=== PATIENT | male | born 1950 | race Caucasian/White ===

== ENCOUNTER 2017-01-10 20:17 | Emergency (ER) | payer MEDICARE, OTHER ==
[2017-01-10 20:32] VITALS: RESP 18
[2017-01-10] MEDS ORDERED: LIDOCAINE/EPINEPHR/TETRACAINE 5 ML BOTTLE TOPICAL ONE (20:50)
--- NOTE | 2017-01-10 20:55 | ED ---
Head Injury HPI - General Chief complaint: Head Injury Stated complaint: Laceration Time Seen by Provider: 01/10/17 20:39 Source: patient, RN notes reviewed Mode of arrival: EMS - History of Present Illness Initial comments: Patient is 66-year-old male presents to the emergency room for evaluation of fall injury. Patient states she was walking and tripped over the curb hit the front of his head. Patient denies loss of consciousness. Patient denies headache. Patient denies neck pain. Patient denies changes in vision. Patient denies any paresthesias. Patient denies nausea or vomiting. Patient denies dizziness. Patient denies any other injuries during incident. Patient denies taking blood thinners. Patient states he is up-to-date on on tetanus. - Related Data Home Medications Medication Instructions Recorded Confirmed Aspirin 81 mg PO DAILY 12/29/13 12/29/13 Insulin Glargine [Lantus] 20 unit SQ HS 12/29/13 12/29/13 Lisinopril [Zestril] 10 mg PO DAILY 12/29/13 12/29/13 Multivitamin [Men's Multi-Vitamin] 1 each PO DAILY 12/29/13 12/29/13 Simvastatin [Zocor] 5 mg PO HS 12/29/13 12/29/13 glipiZIDE [Glucotrol] 2.5 mg PO AC-BID 12/29/13 12/29/13 metFORMIN HCL [Glucophage] 1,000 mg PO BID 12/29/13 12/29/13 Previous Rx's Medication Instructions Recorded Hydrocodone/Acetaminophen [[place] 1 each PO Q6HR PRN #20 tab 12/29/13 5-325] Ibuprofen [Motrin] 600 mg PO Q8HR PRN #30 tab 12/29/13 Ondansetron Odt [Zofran Odt] 4 mg PO Q8HR PRN #10 tab 12/29/13 Allergies/Adverse reactions: Allergies Allergy/AdvReac Type Severity Reaction Status Date / Time Penicillins Allergy Rash/Hives Verified 12/29/13 10:05 Review of Systems ROS Statement: Those systems with pertinent positive or pertinent negative responses have been documented in the HPI. ROS Other: All systems not noted in ROS Statement are negative. Past Medical History Past Medical History: Diabetes Mellitus, Hypertension Additional Past Medical History / Comment(s): kidney stones History of Any Multi-Drug Resistant Organisms: None Reported Past Surgical History: No Surgical Hx Reported Additional Past Surgical History / Comment(s): Lasix sx in left eye Past Psychological History: No Psychological Hx Reported Smoking Status: Never smoker Past Alcohol Use History: None Reported Past Drug Use History: None Reported General Exam - General Exam Comments Initial Comments: sitting in exam room, no acute distress. General appearance: alert, in no apparent distress Expanded Head exam: Present: laceration (2 small lacerations over the left forehead with underlying hematoma, first laceration stellate 1cm, second is linear 2cm) Eye exam: Present: normal appearance, PERRL, EOMI Pupils: Present: normal accommodation ENT exam: Present: normal exam, mucous membranes moist, TM's normal bilaterally , normal external ear exam Neck exam: Absent: normal inspection (c-collar on) Respiratory exam: Present: normal lung sounds bilaterally. Absent: respiratory distress Cardiovascular Exam: Present: regular rate, normal rhythm, normal heart sounds Extremities exam: Present: normal inspection, full ROM, normal capillary refill. Absent: tenderness Back exam: Present: normal inspection Neurological exam: Present: alert, oriented X3, CN II-XII intact, normal gait Psychiatric exam: Present: normal affect, normal mood Skin exam: Present: warm, dry, normal color. Absent: rash Course Vital Signs 01/10/17 01/10/17 20:26 22:52 Temperature 98.2 F 98.7 F Pulse Rate 82 74 Respiratory 18 18 Rate Blood Pressure 123/58 100/60 O2 Sat by Pulse 96 95 Oximetry Procedures - Laceration Laceration #1 Consent Obtained: verbal consent Indication: laceration Site: other (left forehead) Size (cm): 1 Description: stellate Depth: simple, single layer Anesthetic Used: lidocaine 1% Anesthesia Technique: local infiltration Amount (mls): 1 Pre-repair: wound explored Type of Sutures: nylon Size of Sutures: 6-0 Number of Sutures: 3 Technique: simple, interrupted Patient Tolerated Procedure: well, no complications Laceration #2 Consent Obtained: verbal consent Indication: laceration Site: other (left forehead) Size (cm): 2 Description: linear Depth: simple, single layer Anesthetic Used: lidocaine 1% Anesthesia Technique: local infiltration Amount (mls): 2 Pre-repair: wound explored Type of Sutures: nylon Size of Sutures: 6-0 Number of Sutures: 5 Technique: simple, interrupted Patient Tolerated Procedure: well, no complications Medical Decision Making - Medical Decision Making Patient is a 66-year-old male presents to the emergency room for evaluation of fall injury. Patient fell forward hitting his head after tripping on a curb. Lacerations repaired with sutures. Patient does have a hematoma over her left forehead. Brain/C-spine CT negative for any acute findings. Advised patient to follow-up with primary care provider for reevaluation in 24-48 hours. Patient states he understands everything that was discussed with him. Return parameters discussed. Case discussed with Dr. Sutton. Disposition Clinical Impression: Fall, Head injury, Facial hematoma, Facial laceration Disposition: HOME SELF-CARE Condition: Good Instructions: Care For Your Stitches (ED), Head Injury (ED), Facial Laceration (ED) Additional Instructions: Please follow up with primary care provider in 24-48 hours for reevaluation. Clean suture area with a damp cloth. Please return in 3-5 days for suture removal. Take Tylenol or Motrin as needed for pain. If any new symptom arises or symptoms worsen, return to ER as soon as possible. Referrals: Nonstaff,Physician [Primary Care Provider] - 1-2 days Time of Disposition: 22:46
--- NOTE | 2017-01-10 21:37 | CT ---
EXAMINATION TYPE: CT brain avtar calderon DATE OF EXAM: 01/10/2017 COMPARISON: NONE HISTORY: Fall today with frontal injury CT DLP: 1395.7 mGycm Automated exposure control for dose reduction was used. TECHNIQUE: CT scan of the head and cervical spine are performed without contrast. FINDINGS: There is no acute intracranial hemorrhage, mass effect, or midline shift identified. The ventricles and sulci are within normal limits in size. 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 The globes are intact and the visualized sinuses are clear. There is a small superficial extr acalvarial hematoma overlying the left frontal bone. This measures a maximum width of 3 cm. Cervical spine is visualized in its entirety from C1 through upper thoracic levels and demonstrates s atisfactory alignment without evidence of acute fracture or dislocation. Prevertebral soft tissue ap pears within normal limits. The C1-C2 articulation is unremarkable. IMPRESSION: 1. There is no acute fracture or dislocation evident in the cervical spine. 2. No acute intracranial hemorrhage, mass effect, or midline shift is seen. A superficial extracalvar ial hematoma overlying the left frontal bone is noted.
[2017-01-10 23:34] VITALS: BP 100/60; PULSE 74; TEMP 98.7
== END 2017-01-10 22:52 | disposition home or self-care (01) ==
LOC: EC 20:17
DX: S01.81XA Laceration without foreign body of other part of head, initial encounter (principal); E11.9 Type 2 diabetes mellitus without complications; I10 Essential (primary) hypertension; Z88.0 Allergy status to penicillin; Z79.82 Long term (current) use of aspirin; Z79.4 Long term (current) use of insulin; Z79.84 Long term (current) use of oral hypoglycemic drugs; Z79.899 Other long term (current) drug therapy; W01.198A Fall on same level from slipping, tripping and stumbling with subsequent striking against other object, initial encounter; Y93.01 Activity, walking, marching and hiking
CPT/HCPCS: 12013; 70450; 72125; 99284

== ENCOUNTER 2020-06-28 21:41 | Observation (INO) | payer OTHER ==
[2020-06-28] MEDS ORDERED: LIDOCAINE 1% INJ 10MG/ML (20 ML MDV) SQ ONE (22:03)
--- NOTE | 2020-06-28 22:05 | ED ---
General Adult HPI - General Chief complaint: Fall Stated complaint: Fall Time Seen by Provider: 06/28/20 21:50 Source: patient Mode of arrival: EMS Limitations: no limitations - History of Present Illness Initial comments: Dictation was produced using [employer] dictation software. please excuse any grammatical, word or spelling errors. This patient was cared for during a federal and state declared state of emergency secondary to Covid 19 Chief Complaint: 70-year-old male who tripped and fell at home at 5:30 PM presents with facial pain History of Present Illness: Patient 70-year-old male has past medical history diabetes and hypertension. He is ambulating around his household when he tripped and fell over a threshold between rooms. Patient states he fell forward and struck his face on the ground. Denies any loss of consciousness. EMS was called. They noted that there was a foreign body lodged into his upper lip. The ROS documented in this emergency department record has been reviewed and confirmed by me. Those systems with pertinent positive or negative responses have been documented in the HPI. All other systems are other negative and/or noncontributory. PHYSICAL EXAM: General Impression: Alert and oriented x3, not in acute distress HEENT: Bruising of the face, periorbital ecchymoses, there is a avulsion l aceration over the upper lip with foreign body, extra-ocular movements intact, pupils equal and reactive to light bilaterally, mucous membranes moist. Cardiovascular: Heart regular rate and rhythm Chest: Able to complete full sentences, no retractions, no tachypnea Abdomen: abdomen soft, non-tender, non-distended, no organomegaly Musculoskeletal: Pulses present and equal in all extremities, no peripheral edema Motor: no focal deficits noted Neurological: CN II-XII grossly intact, no focal motor or sensory deficits noted Skin: Intact with no visualized rashes Psych: Normal affect and mood ED course: 70-year-old male presents after fall and facial trauma. Vital signs upon arrival are within acceptable limits. EKG interpretation: Ventricular rate 73, normal sinus rhythm,. Interval 180, r ight bundle branch block, QRS 142, QTc 460. No WA prolongation, no QTC prolongation, no ST or T-wave changes noted. No old EKG for comparison. Computed tomography scan of the head and C-spine shows no acute processes. Facial CT shows comminuted nasal bone fracture that appears to be acute. Is mild frontal scalp soft tissue swelling. Patient's tetanus was updated. Patient was given lidocaine lacerations were cleaned and repaired. Patient told to have his sutures removed in 5 days. - Related Data Home Medications Medication Instructions Recorded Confirmed Aspirin 81 mg PO DAILY 12/29/13 12/29/13 Insulin Glargine [Lantus] 20 unit SQ HS 12/29/13 12/29/13 Multivitamin [Men's Multi-Vitamin] 1 each PO DAILY 12/29/13 12/29/13 Simvastatin [Zocor] 5 mg PO HS 12/29/13 12/29/13 glipiZIDE [Glucotrol] 2.5 mg PO AC-BID 12/29/13 12/29/13 lisinopriL [Zestril] 10 mg PO DAILY 12/29/13 12/29/13 metFORMIN HCL [Glucophage] 1,000 mg PO BID 12/29/13 12/29/13 Previous Rx's Medication Instructions Recorded Hydrocodone/Acetaminophen [[place] 1 each PO Q6HR PRN #20 tab 12/29/13 5-325] Ibuprofen [Motrin] 600 mg PO Q8HR PRN #30 tab 12/29/13 Ondansetron Odt [Zofran Odt] 4 mg PO Q8HR PRN #10 tab 12/29/13 Allergies Allergy/AdvReac Type Severity Reaction Status Date / Time Penicillins Allergy Rash/Hives Verified 06/28/20 23:45 Review of Systems ROS Statement: Those systems with pertinent positive or pertinent negative responses have been documented in the HPI. ROS Other: All systems not noted in ROS Statement are negative. Past Medical History Past Medical History: Diabetes Mellitus, Hypertension Additional Past Medical History / Comment(s): kidney stones History of Any Multi-Drug Resistant Organisms: None Reported Past Surgical History: No Surgical Hx Reported Additional Past Surgical History / Comment(s): Lasix sx in left eye Past Psychological History: No Psychological Hx Reported Past Alcohol Use History: None Reported Past Drug Use History: None Reported General Exam Limitations: no limitations Course Vital Signs 06/28/20 21:46 Temperature 98.0 F Pulse Rate 77 Respiratory 18 Rate Blood Pressure 103/68 O2 Sat by Pulse 97 Oximetry Procedures - Laceration Laceration #1 Consent Obtained: verbal consent Indication: laceration Site: face Size (cm): 5 Description: avulsion Depth: simple, single layer Anesthetic Used: lidocaine 1% Anesthesia Technique: local infiltration Type of Sutures: nylon Size of Sutures: 6-0 Technique: simple, interrupted Patient Tolerated Procedure: well Disposition Clinical Impression: Fall, Facial laceration Disposition: HOME SELF-CARE Condition: Good Instructions (If sedation given, give patient instructions): Fall Prevention for Older Adults (ED) Additional Instructions: Suture removal in 5 days. Is patient prescribed a controlled substance at d/c from ED?: No Referrals: Nonstaff,Physician [REFERRING] - 1-2 days Time of Disposition: 23:50
--- NOTE | 2020-06-28 23:13 | CT ---
EXAMINATION TYPE: CT brain avtar wo con DATE OF EXAM: 06/28/2020 COMPARISON: 01/10/2017 HISTORY: pt fall, facial injuries CT DLP: 1160.1 mGycm Automated exposure control for dose reduction was used. Images were obtained of the brain and cervical spine without contrast. There is cerebral cortical atrophy. There is no mass effect nor midline shift. There is no evidence o f intracranial hemorrhage. The calvarium is intact. Skull base is intact. There is normal aeration of the paranasal sinuses. There is incomplete pneumatization of the mastoid sinuses. Cervical vertebra have normal alignment. Posterior elements are intact. Disc spaces are fairly normal . Facet joints are intact. The skull base is intact. There is no evidence of compression fracture. IMPRESSION: Mild cerebral atrophy. No acute intracranial abnormality. No change. Negative CT scan of the cervical spine. No fracture. No change.
--- NOTE | 2020-06-28 23:29 | CT ---
EXAMINATION TYPE: CT facial bones wo con DATE OF EXAM: 06/28/2020 COMPARISON: None HISTORY: pt fall, facial injuries CT DLP: 1160.1 mGycm Automated exposure control for dose reduction was used. Images were obtained from the bottom of the mandible to the top of the frontal sinuses without contra st. The mandibular ring is intact. Temporomandibular joints appear normal. Zygomatic arches appear no rmal. There is deformity of the nasal bone with depression of the left lateral wall of the nasal bone and comminuted fracture. There is normal aeration of the maxillary sinuses. Orbital margins are inta ct. There is no evidence of a blowout fracture. The globes are symmetric. There is no evidence of ret ro-orbital mass. There is some mucosal thickening in the anterior nasopharynx and anterior ethmoid ai r cells. This could be partly blood clot. There is mild soft tissue swelling over the frontal bone. IMPRESSION: Comminuted nasal bone fracture appears acute and is a change compared to 01/10/2017 CT scan. Mild frontal scalp soft tissue swelling.
[2020-06-28] MEDS ORDERED: DIPH,PERTUS(ACELL)TETVAC-LF 0.5 ML VIAL IM ONE (23:31)
[2020-06-29 00:22] LABS: Glucose,Whole Blood 580 mg/dL (75-99)
[2020-06-29] MEDS ORDERED: SODIUM CHLORIDE 0.9% 1,000 ML IV STA ×2 (00:23→01:53)
[2020-06-29] MEDS ORDERED: INSULIN REGULAR 100 UNIT/ML VIAL IV ONE (00:23)
[2020-06-29 01:00] LABS: Basophils # (A) 0.1 k/uL (0-0.2); Basophils % (A) 1 %; Eosinophils # (A) 0.1 k/uL (0-0.7); Eosinophils % (A) 2 %; HCT 41.2 % (39.0-53.0); HGB 14.7 gm/dL (13.0-17.5); Lymphocytes # (A) 1.2 k/uL (1.0-4.8); Lymphocytes % (A) 17 %; MCH 31.2 pg (25.0-35.0); MCHC 35.7 g/dL (31.0-37.0); MCV 87.5 fL (80.0-100.0); Mean Platelet Volume 6.6; Monocytes # (A) 0.4 k/uL (0-1.0); Monocytes % (A) 6 %; Neutrophils # (A) 5.1 k/uL (1.3-7.7); Neutrophils % (A) 73 %; Platelet Count 190 k/uL (150-450); RBC 4.71 m/uL (4.30-5.90); RDW 13.1 % (11.5-15.5)
[2020-06-29 01:24] LABS: Glucose,Whole Blood 436 mg/dL (75-99)
[2020-06-29 02:20] LABS: African American GFR (CKD) 77 (>60 ml/min/1.73 sqM); Anion Gap 7 mmol/L; Blood Urea Nitrogen 23 mg/dL (9-20); Calcium 9.2 mg/dL (8.4-10.2); Carbon Dioxide 32 mmol/L (22-30); Chloride 91 mmol/L (98-107); Non-African American GFR(CKD) 66 (>60 ml/min/1.73 sqM); Sodium 130 mmol/L (137-145)
[2020-06-29 02:38] LABS: Glucose 549 mg/dL (74-99)
[2020-06-29] MEDS ORDERED: NALOXONE 0.4 MG/ML 1 ML VIAL IV PRN (03:09)
[2020-06-29 03:12] LABS: Glucose,Whole Blood 309 mg/dL (75-99)
[2020-06-29] MEDS ORDERED: ACETAMINOPHEN TAB 325 MG TAB PO PRN (03:21)
[2020-06-29] MEDS ORDERED: IBUPROFEN 400 MG TAB PO PRN (03:21)
[2020-06-29 08:38] VITALS: RESP 16
[2020-06-29 08:48] LABS: Glucose,Whole Blood 373 mg/dL (75-99)
[2020-06-29] MEDS ORDERED: INSULIN DETEMIR (LEVEMIR) 100 UNIT/ML SYR SQ SCH ×2 (09:00→21:00)
[2020-06-29] MEDS: SERTRALINE 100 MG TAB PO SCH (09:49)
[2020-06-29] MEDS: ASPIRIN 81 MG PO SCH (09:49)
[2020-06-29] MEDS: metFORMIN 500 MG TAB PO SCH ×2 (09:49→23:16)
[2020-06-29] MEDS: MULTIVITAMINS, THERA 1 EACH TAB PO SCH (09:49)
[2020-06-29] MEDS: INSULIN ASPART (NovoLOG) 100 UNIT/ML VIAL SQ SCH ×4 (09:50→23:16)
[2020-06-29 13:06] LABS: Glucose,Whole Blood 415 mg/dL (75-99)
[2020-06-29] MEDS: SODIUM CHLORIDE 0.9% 1,000 ML IV SCH ×3 (13:20→23:23)
--- NOTE | 2020-06-29 13:47 | P.HPIM ---
History of Present Illness Patient 70-year-old male has past medical history diabetes and hypertension. He is ambulating around his household when he tripped and fell over a threshold between rooms. Patient states he fell forward and struck his face on the ground. Denies any loss of consciousness. EMS was called. They noted that there was a foreign body lodged into his upper lip. She was about to discharge from ER but the found to have highly elevated blood sugars because of which patient was given the 30 units of Levemir. Patient usually takes long-acting insulin the 30 units at nighttime. 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 Review of Systems REVIEW OF SYSTEMS: CONSTITUTIONAL: No fever, no malaise, no fatigue. HEENT: No recent visual problems or hearing problems. Denied any sore throat. CARDIOVASCULAR: No chest pain, orthopnea, PND, no palpitations, no syncope. PULMONARY: No shortness of breath, no cough, no hemoptysis. GASTROINTESTINAL: No diarrhea, no nausea, no vomiting, no abdominal pain. NEUROLOGICAL: No headaches, no weakness, no numbness. HEMATOLOGICAL: Denies any bleeding or petechiae. GENITOURINARY: Denies any burning micturition, frequency, or urgency. MUSCULOSKELETAL/RHEUMATOLOGICAL: Denies any joint pain, swelling, or any muscle pain. ENDOCRINE: Denies any polyuria or polydipsia. The rest of the 14-point review of systems is negative. Past Medical History Past Medical History: Diabetes Mellitus, Hypertension Additional Past Medical History / Comment(s): kidney stones History of Any Multi-Drug Resistant Organisms: None Reported Past Surgical History: No Surgical Hx Reported Additional Past Surgical History / Comment(s): Lasix sx in left eye Past Psychological History: No Psychological Hx Reported Past Alcohol Use History: None Reported Past Drug Use History: None Reported Medications and Allergies Home Medications Medication Instructions Recorded Confirmed Type Aspirin 81 mg PO DAILY 12/29/13 06/28/20 History Insulin Glargine [Lantus] 30 unit SQ DAILY 12/29/13 06/28/20 History metFORMIN HCL [Glucophage] 1,000 mg PO BID 12/29/13 06/28/20 History Dextran/Hypromellose/Glycerin 1 drop BOTH EYES QID PRN 06/28/20 06/28/20 History [Genteal Tears 0.1%-0.2%-0.3%] Multivitamins W/Minerals 1 tab PO DAILY 06/28/20 06/28/20 History Sertraline [Zoloft] 100 mg PO DAILY 06/28/20 06/28/20 History Simvastatin [Zocor] 40 mg PO HS 06/28/20 06/28/20 History lisinopriL [Zestril] 2.5 mg PO DAILY 06/28/20 06/28/20 History Allergies Allergy/AdvReac Type Severity Reaction Status Date / Time Penicillins Allergy Rash/Hives Verified 06/28/20 23:45 Physical Exam Vitals: Vital Signs Temp Pulse Pulse Resp BP BP Pulse Ox 06/29/20 08:37 97.4 F L 89 16 98/60 94 L 06/29/20 06:50 98.4 F 69 20 98/61 94 L 06/29/20 01:51 98.3 F 73 18 107/61 97 06/28/20 21:46 98.0 F 77 18 103/68 97 Intake and Output 06/28/20 06/29/20 06/29/20 22:59 06:59 14:59 Intake Total 360 Balance 360 Intake: Oral 360 Other: Weight 60.781 kg PHYSICAL EXAMINATION: GENERAL: The patient is alert and oriented x3, not in any acute distress. Well developed, well nourished. HEENT: Pupils are round and equally reacting to light. EOMI. No scleral icterus. No conjunctival pallor. Normocephalic, patient has multiple bruises on the face. Orbital ecchymosis and laceration of the upper lip. No pharyngeal erythema. No thyromegaly. CARDIOVASCULAR: S1 and S2 present. No murmurs, rubs, or gallops. PULMONARY: Chest is clear to auscultation, no wheezing or crackles. ABDOMEN: Soft, nontender, nondistended, normoactive bowel sounds. No palpable organomegaly. MUSCULOSKELETAL: No joint swelling or deformity. EXTREMITIES: No cyanosis, clubbing, or pedal edema. NEUROLOGICAL: Gross neurological examination did not reveal any focal deficits. SKIN: No rashes. Results CBC & Chem 7: 06/29/20 00:45 06/29/20 02:09 Labs: Abnormal Lab Results - Last 24 Hours (Table) 06/29/20 06/29/20 06/29/20 Range/Units 00:20 01:23 02:09 Sodium 130 L (137-145) mmol/L Chloride 91 L (98-107) mmol/L Carbon Dioxide 32 H (22-30) mmol/L BUN 23 H (9-20) mg/dL Glucose 549 H* (74-99) mg/dL POC Glucose (mg/dL) 580 H 436 H (75-99) mg/dL 06/29/20 06/29/20 06/29/20 Range/Units 03:10 08:45 12:59 Sodium (137-145) mmol/L Chloride (98-107) mmol/L Carbon Dioxide (22-30) mmol/L BUN (9-20) mg/dL Glucose (74-99) mg/dL POC Glucose (mg/dL) 309 H 373 H 415 H (75-99) mg/dL Assessment and Plan Plan: -Hypoglycemia: Patient will be given 20 more units at nighttime of long-acting insulin along with sliding scale will monitor the blood sugars depending on the blood sugar response I'll be able to decide his home regimen by tomorrow morning. -Hyponatremia: Pseudohyponatremia from hyperglycemia there is probably mild dehydration as well patient will be started on IV fluids -Acute renal failure secondary to dehydration IV fluids as mentioned above -Mechanical fall: No fractures on CT of the cervical spine and head. The comminuted nasal bone fracture. -Hypertension
[2020-06-29 16:38] LABS: Glucose,Whole Blood 350 mg/dL (75-99)
[2020-06-29] MEDS ORDERED: ATORVASTATIN 20 MG TAB PO SCH (21:00)
[2020-06-29 22:26] LABS: Glucose,Whole Blood 300 mg/dL (75-99)
[2020-06-30] MEDS: SODIUM CHLORIDE 0.9% 1,000 ML IV SCH ×2 (03:59→08:13)
[2020-06-30 05:53] LABS: Glucose,Whole Blood 99 mg/dL (75-99)
[2020-06-30] MEDS: INSULIN ASPART (NovoLOG) 100 UNIT/ML VIAL SQ SCH ×2 (07:11→12:17)
[2020-06-30] MEDS: ASPIRIN 81 MG PO SCH (08:12)
[2020-06-30] MEDS: MULTIVITAMINS, THERA 1 EACH TAB PO SCH (08:13)
[2020-06-30] MEDS: SERTRALINE 100 MG TAB PO SCH (08:13)
[2020-06-30] MEDS: metFORMIN 500 MG TAB PO SCH (08:13)
[2020-06-30 08:30] LABS: African American GFR (CKD) >90 (>60 ml/min/1.73 sqM); Anion Gap 6 mmol/L; Blood Urea Nitrogen 20 mg/dL (9-20); Calcium 8.2 mg/dL (8.4-10.2); Carbon Dioxide 28 mmol/L (22-30); Chloride 101 mmol/L (98-107); Glucose 239 mg/dL (74-99); Non-African American GFR(CKD) 80 (>60 ml/min/1.73 sqM); Potassium 3.8 mmol/L (3.5-5.1); Sodium 135 mmol/L (137-145)
[2020-06-30 09:28] VITALS: BP 97/56; PULSE 76; TEMP 97.2
[2020-06-30 12:00] LABS: Glucose,Whole Blood 309 mg/dL (75-99)
--- NOTE | 2020-06-30 12:08 | P.DS ---
Providers Date of admission: 06/29/20 03:11 Attending physician: Marla Damon Primary care physician: Stated None Hospital Course: 70-year-old male has past medical history diabetes and hypertension. He is ambulating around his household when he tripped and fell over a threshold between rooms. Patient states he fell forward and struck his face on the ground. Denies any loss of consciousness. EMS was called. They noted that there was a foreign body lodged into his upper lip. She was about to discharge from ER but the found to have highly elevated blood sugars because of which patient was given the 30 units of Levemir. Patient usually takes long-acting insulin the 30 units at nighttime. 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 06/30/2020 Patient blood sugars have come down significantly patient probably related 40 units of Lantus patient was asked to check the blood sugars twice a day. Patient is probably on lisinopril low-dose as a nephro protective agent for diabetic nephropathy. His blood pressure is significantly low because of which I'll stop this medication can be restarted as an outpatient if needed again. And if he has proteinuria. Patient's hyponatremia improved patient was in sodium is 135. PHYSICAL EXAMINATION: GENERAL: The patient is alert and oriented x3, not in any acute distress. Well developed, well nourished. HEENT: Pupils are round and equally reacting to light. EOMI. No scleral icterus. No conjunctival pallor. Normocephalic, patient has multiple bruises on the face. Orbital ecchymosis and laceration of the upper lip. No pharyngeal erythema. No thyromegaly. CARDIOVASCULAR: S1 and S2 present. No murmurs, rubs, or gallops. PULMONARY: Chest is clear to auscultation, no wheezing or crackles. ABDOMEN: Soft, nontender, nondistended, normoactive bowel sounds. No palpable organomegaly. MUSCULOSKELETAL: No joint swelling or deformity. EXTREMITIES: No cyanosis, clubbing, or pedal edema. NEUROLOGICAL: Gross neurological examination did not reveal any focal deficits. SKIN: No rashes. Assessment and Plan Plan: -Hypoglycemia, type 2 diabetes mellitus uncontrolled elevated blood sugars: Management as mentioned above -Hyponatremia: Pseudohyponatremia from hyperglycemia there is probably mild dehydration , improved now -Acute renal failure secondary to dehydration, improved now -Mechanical fall: No fractures on CT of the cervical spine and head. The comminuted nasal bone fracture. -Hypertension Patient Condition at Discharge: Good Plan - Discharge Summary Discharge Rx Participant: No New Discharge Prescriptions: Continue Aspirin 81 mg PO DAILY metFORMIN HCL [Glucophage] 1,000 mg PO BID Sertraline [Zoloft] 100 mg PO DAILY Multivitamins W/Minerals 1 tab PO DAILY Dextran/Hypromellose/Glycerin [Genteal Tears 0.1%-0.2%-0.3%] 1 drop BOTH EYES QID PRN PRN Reason: Dry Eye(S) Simvastatin [Zocor] 40 mg PO HS Changed Insulin Glargine [Lantus] 40 unit SQ DAILY #0 Discontinued lisinopriL [Zestril] 2.5 mg PO DAILY Discharge Medication List Aspirin 81 mg PO DAILY 12/29/13 [History] metFORMIN HCL [Glucophage] 1,000 mg PO BID 12/29/13 [History] Dextran/Hypromellose/Glycerin [Gente[place] Tears 0.1%-0.2%-0.3%] 1 drop BOTH EYES QID PRN 06/28/20 [History] Multivitamins W/Minerals 1 tab PO DAILY 06/28/20 [History] Sertraline [Zoloft] 100 mg PO DAILY 06/28/20 [History] Simvastatin [Zocor] 40 mg PO HS 06/28/20 [History] Insulin Glargine [Lantus] 40 unit SQ DAILY #0 06/30/20 [Rx] Follow up Appointment(s)/Referral(s): Nonstaff,Physician [REFERRING] - 3 Days Patient Instructions/Handouts: Fall Prevention for Older Adults (ED) Activity/Diet/Wound Care/Special Instructions: Suture removal in 5 days. Discharge Disposition: HOME SELF-CARE
[2020-06-30 13:49] VITALS: BMI 19.8
== END 2020-06-30 13:00 | disposition home or self-care (01) ==
LOC: EC 21:41 → 1SOBS 06-29 03:11
PROVIDERS: ADMIT Internal Medicine; ATTEND Internal Medicine
DX: E11.65 Type 2 diabetes mellitus with hyperglycemia (principal); I10 Essential (primary) hypertension; S02.2XXA Fracture of nasal bones, initial encounter for closed fracture; S01.521A Laceration with foreign body of lip, initial encounter; E11.649 Type 2 diabetes mellitus with hypoglycemia without coma; E87.1 Hypo-osmolality and hyponatremia; E86.0 Dehydration; N17.9 Acute kidney failure, unspecified; Z87.442 Personal history of urinary calculi; W01.0XXA Fall on same level from slipping, tripping and stumbling without subsequent striking against object, initial encounter; Y92.009 Unspecified place in unspecified non-institutional (private) residence as the place of occurrence of the external cause; Z79.82 Long term (current) use of aspirin; Z79.4 Long term (current) use of insulin; Z79.899 Other long term (current) drug therapy; Z88.0 Allergy status to penicillin
CPT/HCPCS: 99285; 12013; 96360; 96361; 90471; 36415; 93005; 83880; 80048 ×2; 82009; 85025; 72125; 70486; 70450; 90715; G0378 ×2; J2001

== ENCOUNTER 2020-08-06 15:39 | Observation (INO) | payer OTHER, MEDICARE ==
[2020-08-06 15:46] LABS: Glucose,Whole Blood >600 mg/dL (75-99)
[2020-08-06] MEDS ORDERED: SODIUM CHLORIDE 0.9% 1,000 ML IV ONE (15:54)
[2020-08-06 16:22] LABS: Basophils % (A) 1 %; Eosinophils # (A) 0.1 k/uL (0-0.7); Eosinophils % (A) 3 %; HCT 44.3 % (39.0-53.0); HGB 14.8 gm/dL (13.0-17.5); Lymphocytes # (A) 1.1 k/uL (1.0-4.8); Lymphocytes % (A) 21 %; MCH 30.4 pg (25.0-35.0); MCHC 33.4 g/dL (31.0-37.0); MCV 91.2 fL (80.0-100.0); Mean Platelet Volume 6.8; Monocytes # (A) 0.3 k/uL (0-1.0); Monocytes % (A) 5 %; Neutrophils # (A) 3.8 k/uL (1.3-7.7); Neutrophils % (A) 70 %; Platelet Count 201 k/uL (150-450); RBC 4.86 m/uL (4.30-5.90); RDW 13.6 % (11.5-15.5); WBC 5.4 k/uL (3.8-10.6)
[2020-08-06 16:26] LABS: Appearance,Urine Clear (Clear); Bilirubin,Urine Negative (Negative); Blood,Urine Negative (Negative); Color,Urine Colorless; Glucose,Urine (UA) 4+ (Negative); Ketones,Urine Negative (Negative); Leukocyte Esterase,Urine Negative (Negative); Nitrite,Urine Negative (Negative); Protein,Urine Negative (Negative); Specific Gravity,Urine 1.029 (1.001-1.035); Urobilinogen,Urine <2.0 mg/dL (<2.0)
[2020-08-06 16:31] LABS: ALT 21 U/L (4-49); AST 27 U/L (17-59); African American GFR (CKD) 77 (>60 ml/min/1.73 sqM); Albumin 4.2 g/dL (3.5-5.0); Alkaline Phosphatase 77 U/L (38-126); Anion Gap 11 mmol/L; Blood Urea Nitrogen 24 mg/dL (9-20); Calcium 9.1 mg/dL (8.4-10.2); Carbon Dioxide 24 mmol/L (22-30); Chloride 90 mmol/L (98-107); Non-African American GFR(CKD) 67 (>60 ml/min/1.73 sqM); Potassium 4.9 mmol/L (3.5-5.1); Sodium 125 mmol/L (137-145); Total Bilirubin 0.5 mg/dL (0.2-1.3); Total Protein 6.9 g/dL (6.3-8.2)
--- NOTE | 2020-08-06 16:38 | ED ---
General Adult HPI - General Chief complaint: Recheck/Abnormal Lab/Rx Stated complaint: High Blood Sugar Time Seen by Provider: 08/06/20 15:46 Source: patient, family, RN notes reviewed, old records reviewed Mode of arrival: wheelchair Limitations: no limitations - History of Present Illness Initial comments: 70-year-old male presenting for evaluation of abnormal outpatient lab. Patient was noted to have a blood glucose of greater than 700. He admits he abdominal and truncal glucose morning. He admits to not being compliant with his Lantus which he takes 40 units daily. He has no physical complaints. He states he was told to present to the emergency department for elevated blood glucose level. Additionally he is on metformin. - Related Data Home Medications Medication Instructions Recorded Confirmed Aspirin 81 mg PO DAILY 12/29/13 06/28/20 metFORMIN HCL [Glucophage] 1,000 mg PO BID 12/29/13 06/28/20 Dextran/Hypromellose/Glycerin 1 drop BOTH EYES QID PRN 06/28/20 06/28/20 [Genteal Tears 0.1%-0.2%-0.3%] Multivitamins W/Minerals 1 tab PO DAILY 06/28/20 06/28/20 Sertraline [Zoloft] 100 mg PO DAILY 06/28/20 06/28/20 Simvastatin [Zocor] 40 mg PO HS 06/28/20 06/28/20 Previous Rx's Medication Instructions Recorded Insulin Glargine [Lantus] 40 unit SQ DAILY #0 06/30/20 Clindamycin [Cleocin] 450 mg PO Q8H 7 Days #63 cap 07/04/20 Allergies Allergy/AdvReac Type Severity Reaction Status Date / Time Penicillins Allergy Rash/Hives Verified 08/06/20 15:44 Review of Systems ROS Statement: Those systems with pertinent positive or pertinent negative responses have been documented in the HPI. ROS Other: All systems not noted in ROS Statement are negative. Past Medical History Past Medical History: Diabetes Mellitus, Hypertension Additional Past Medical History / Comment(s): . History of Any Multi-Drug Resistant Organisms: None Reported Past Surgical History: No Surgical Hx Reported Additional Past Surgical History / Comment(s): . Past Anesthesia/Blood Transfusion Reactions: No Reported Reaction Past Psychological History: PTSD Smoking Status: Never smoker Past Alcohol Use History: None Reported Past Drug Use History: None Reported General Exam Limitations: no limitations General appearance: alert, in no apparent distress Head exam: Present: atraumatic, normocephalic Eye exam: Present: normal appearance, PERRL ENT exam: Present: normal exam Neck exam: Present: normal inspection. Absent: tenderness, meningismus Respiratory exam: Present: normal lung sounds bilaterally. Absent: respiratory distress, wheezes Cardiovascular Exam: Present: regular rate, normal rhythm GI/Abdominal exam: Present: soft. Absent: distended, tenderness, guarding Extremities exam: Present: normal inspection, normal capillary refill. Absent: pedal edema Neurological exam: Present: alert, oriented X3, CN II-XII intact. Absent: motor sensory deficit Psychiatric exam: Present: normal affect, normal mood Skin exam: Present: warm, dry, intact. Absent: cyanosis, diaphoretic Course Vital Signs 08/06/20 08/06/20 15:39 16:44 Temperature 98.2 F Pulse Rate 84 72 Respiratory 18 18 Rate Blood Pressure 134/69 108/65 O2 Sat by Pulse 96 95 Oximetry Medical Decision Making - Medical Decision Making 70-year-old male presenting with hyperglycemia, history of diabetes. Blood glucose is 800. He has a pseudohyponatremia with a sodium of 125. Urinalysis showing 4+ glucose. There is no ketones in the urine, acetone is negative. He is not in DKA. He will be admitted for IV fluids, IV insulin, and blood glucose monitoring. Case discussed with Dr. Walker - Lab Data Result diagrams: 08/06/20 16:15 08/06/20 16:15 Lab Results 08/06/20 08/06/20 08/06/20 Range/Units 15:43 16:15 16:15 WBC 5.4 (3.8-10.6) k/uL RBC 4.86 (4.30-5.90) m/uL Hgb 14.8 (13.0-17.5) gm/dL Hct 44.3 (39.0-53.0) % MCV 91.2 (80.0-100.0) fL MCH 30.4 (25.0-35.0) pg MCHC 33.4 (31.0-37.0) g/dL RDW 13.6 (11.5-15.5) % Plt Count 201 (150-450) k/uL MPV 6.8 Neutrophils % 70 % Lymphocytes % 21 % Monocytes % 5 % Eosinophils % 3 % Basophils % 1 % Neutrophils # 3.8 (1.3-7.7) k/uL Lymphocytes # 1.1 (1.0-4.8) k/uL Monocytes # 0.3 (0-1.0) k/uL Eosinophils # 0.1 (0-0.7) k/uL Basophils # 0.0 (0-0.2) k/uL Sodium (137-145) mmol/L Potassium (3.5-5.1) mmol/L Chloride (98-107) mmol/L Carbon Dioxide (22-30) mmol/L Anion Gap mmol/L BUN (9-20) mg/dL Creatinine (0.66-1.25) mg/dL Est GFR (CKD-EPI)AfAm (>60 ml/min/1.73 sqM) Est GFR (CKD-EPI)NonAf (>60 ml/min/1.73 sqM) Glucose (74-99) mg/dL POC Glucose (mg/dL) >600 H (75-99) mg/dL POC Glu Air Brake Man ID [place] Calcium (8.4-10.2) mg/dL Total Bilirubin (0.2-1.3) mg/dL AST (17-59) U/L ALT (4-49) U/L Alkaline Phosphatase (38-126) U/L Total Protein (6.3-8.2) g/dL Albumin (3.5-5.0) g/dL Urine Color Colorless Urine Appearance Clear (Clear) Urine pH 5.0 (5.0-8.0) Ur Specific [place] 1.029 (1.001-1.035) Urine Protein Negative (Negative) Urine Glucose (UA) 4+ H (Negative) Urine Ketones Negative (Negative) Urine Blood Negative (Negative) Urine Nitrite Negative (Negative) Urine Bilirubin Negative (Negative) Urine Urobilinogen <2.0 (<2.0) mg/dL Ur Leukocyte Esterase Negative (Negative) Acetone, Qual (Negative) 08/06/20 Range/Units 16:15 WBC (3.8-10.6) k/uL RBC (4.30-5.90) m/uL Hgb (13.0-17.5) gm/dL Hct (39.0-53.0) % MCV (80.0-100.0) fL MCH (25.0-35.0) pg MCHC (31.0-37.0) g/dL RDW (11.5-15.5) % Plt Count (150-450) k/uL MPV Neutrophils % % Lymphocytes % % Monocytes % % Eosinophils % % Basophils % % Neutrophils # (1.3-7.7) k/uL Lymphocytes # (1.0-4.8) k/uL Monocytes # (0-1.0) k/uL Eosinophils # (0-0.7) k/uL Basophils # (0-0.2) k/uL Sodium 125 L (137-145) mmol/L Potassium 4.9 (3.5-5.1) mmol/L Chloride 90 L (98-107) mmol/L Carbon Dioxide 24 (22-30) mmol/L Anion Gap 11 mmol/L BUN 24 H (9-20) mg/dL Creatinine 1.10 (0.66-1.25) mg/dL Est GFR (CKD-EPI)AfAm 77 (>60 ml/min/1.73 sqM) Est GFR (CKD-EPI)NonAf 67 (>60 ml/min/1.73 sqM) Glucose 796 H* (74-99) mg/dL POC Glucose (mg/dL) (75-99) mg/dL POC Glu Air Brake Man ID Calcium 9.1 (8.4-10.2) mg/dL Total Bilirubin 0.5 (0.2-1.3) mg/dL AST 27 (17-59) U/L ALT 21 (4-49) U/L Alkaline Phosphatase 77 (38-126) U/L Total Protein 6.9 (6.3-8.2) g/dL Albumin 4.2 (3.5-5.0) g/dL Urine Color Urine Appearance (Clear) Urine pH (5.0-8.0) Ur Specific [place] (1.001-1.035) Urine Protein (Negative) Urine Glucose (UA) (Negative) Urine Ketones (Negative) Urine Blood (Negative) Urine Nitrite (Negative) Urine Bilirubin (Negative) Urine Urobilinogen (<2.0) mg/dL Ur Leukocyte Esterase (Negative) Acetone, Qual Negative (Negative) Disposition Clinical Impression: Hyperglycemia Disposition: ADMITTED IP TO THIS [facility] Condition: Stable Is patient prescribed a controlled substance at d/c from ED?: No Referrals: Nonstaff,Physician [Primary Care Provider] - 1-2 days Decision to Admit Reason: Admit from EC Decision Date: 08/06/20 Decision Time: 17:18
[2020-08-06 16:50] LABS: Glucose 796 mg/dL (74-99)
[2020-08-06] MEDS ORDERED: INSULIN REGULAR 100 UNIT/ML VIAL IV ONE (17:03)
[2020-08-06] MEDS ORDERED: SODIUM CHLORIDE 0.9% 500 ML 500 ML IV ONE (17:03)
[2020-08-06] MEDS ORDERED: NALOXONE 0.4 MG/ML 1 ML VIAL IV PRN (17:15)
[2020-08-06] MEDS: SODIUM CHLORIDE 0.9% 1,000 ML IV SCH (17:29)
[2020-08-06 18:22] LABS: Glucose,Whole Blood >600 mg/dL (75-99)
[2020-08-06 19:03] LABS: Glucose,Whole Blood 568 mg/dL (75-99)
[2020-08-06 19:03] LABS: Glucose,Whole Blood 570 mg/dL (75-99)
[2020-08-06] MEDS ORDERED: INSULIN ASPART (NovoLOG) 100 UNIT/ML VIAL SQ ONE (19:17)
[2020-08-06 20:20] LABS: Glucose,Whole Blood 503 mg/dL (75-99)
[2020-08-06] MEDS ORDERED: INSULIN DETEMIR (LEVEMIR) 100 UNIT/ML SYR SQ STA (20:42)
[2020-08-06] MEDS: INSULIN ASPART (NovoLOG) 100 UNIT/ML VIAL SQ SCH (20:44)
[2020-08-06] MEDS ORDERED: INSULIN DETEMIR (LEVEMIR) 100 UNIT/ML SYR SQ SCH (21:00)
[2020-08-06] MEDS ORDERED: ATORVASTATIN 20 MG TAB PO SCH (21:00)
[2020-08-06 21:26] LABS: Glucose,Whole Blood 305 mg/dL (75-99)
--- NOTE | 2020-08-06 22:15 | P.HPIM ---
History of Present Illness H&P Date: 08/06/20 Chief Complaint: Hyperglycemia 70-year-old male with diabetes mellitus and hypertension Patient receives care at [facility] patient had some blood work done recently he was told his A1c is higher than 10 his blood sugars poorly controlled his blood sugar today has been elevated above 600. Admits to forgetting taking his long-acting insulin for the past 2 nights which she normally takes at night. He also takes metformin. Patient reports that his has Parkinson with early dementia and they live together in a mobile home. He believes that he can manage his medications he just needs a method that's reliable to remind him of his insulin. Currently he denies any fevers chills he denies any confusion he denies any headache denies any changes in his vision however he does have poor cataract and waiting on surgery. Patient also denies any abdominal pain nausea or vomiting he denies any changes in his bowel habits denies any urinary changes denies any GI bleeding. He denies feeling sick at this time. He has good appetite and asking for food. And he is in very good spirits he is telling me that him and his are considering assisted living facility in the near future. Patient also was telling me about his recent fall when he tripped on his doorstep ended up getting admitted to the hospital for evaluation about a month ago. In the ER blood work showed hyponatremia and severe hyperglycemia without ketosis Review of Systems Pertinent positives as noted in HPI. All other systems were reviewed and are neg ative Past Medical History Past Medical History: Diabetes Mellitus, Hypertension Additional Past Medical History / Comment(s): . History of Any Multi-Drug Resistant Organisms: None Reported Past Surgical History: No Surgical Hx Reported Additional Past Surgical History / Comment(s): . Past Anesthesia/Blood Transfusion Reactions: No Reported Reaction Past Psychological History: PTSD Smoking Status: Never smoker Past Alcohol Use History: None Reported Past Drug Use History: None Reported - Past Family History Family Family Medical History: No Reported History Medications and Allergies Home Medications Medication Instructions Recorded Confirmed Type Aspirin 81 mg PO DAILY 12/29/13 08/06/20 History metFORMIN HCL [Glucophage] 1,000 mg PO BID 12/29/13 08/06/20 History Sertraline [Zoloft] 100 mg PO DAILY 06/28/20 08/06/20 History Simvastatin [Zocor] 40 mg PO DAILY 06/28/20 08/06/20 History Insulin Glargine,Hum.rec.anlog 40 unit SQ HS 08/06/20 08/06/20 History [Lantus Solostar] Multivitamins, Thera [Multivitamin 0.5 tab PO BID 08/06/20 08/06/20 History (formulary)] Allergies Allergy/AdvReac Type Severity Reaction Status Date / Time Penicillins Allergy Rash/Hives Verified 08/06/20 15:44 Physical Exam Vitals: Vital Signs Temp Pulse Resp BP Pulse Ox 08/06/20 18:18 98.2 F 66 18 116/61 95 08/06/20 17:00 66 18 116/61 95 08/06/20 16:44 72 18 108/65 95 08/06/20 15:39 98.2 F 84 18 134/69 96 Intake and Output 08/06/20 08/06/20 08/06/20 06:59 14:59 22:59 Other: Weight 64.41 kg Constitutional: No acute distress, conversant, pleasant, patient looks older than stated age Eyes: Anicteric sclerae, moist conjunctiva, Pupils equal round reactive to light ENMT: NC/AT Oropharynx clear, no erythema, or exudates Neck: Supple, FROM, no masses, or JVD No carotid bruits No thyromegaly Lungs: Clear to auscultation Clear to percussion Normal respiratory effort, no accessory muscle use Cardiovascular: Heart regular in rate and rhythm, No murmurs, gallops, or rubs No peripheral edema Abdominal: Soft Nontender, no guarding, rebound or rigidity Abdomen moving with respiration Normoactive bowel sounds No hepatomegaly, No splenomegaly No palpable mass No abdominal wall hernia noted Skin: Normal temperature, tone, texture, turgor No induration No subcutaneous nodules No rash, lesions No ulcers Extremities: No digital cyanosis No clubbing Pedal pulses intact and symmetrical Radial pulses intact and symmetrical No calf tenderness Psychiatric: Alert and oriented to person, place and time Appropriate affect fair judgement Neuro Muscles Strength 4/5 in all 4 extremities Sensation to light touch grossly present throughout Cranial nerves II-XII grossly intact No focal sensory deficits Lymphatics: no palpable cervical or supraclavicular , or inguinal lymph nodes Results CBC & Chem 7: 08/06/20 16:15 08/06/20 16:15 Labs: Abnormal Lab Results - Last 24 Hours (Table) 08/06/20 08/06/20 08/06/20 Range/Units 15:43 16:15 16:15 Sodium 125 L (137-145) mmol/L Chloride 90 L (98-107) mmol/L BUN 24 H (9-20) mg/dL Glucose 796 H* (74-99) mg/dL POC Glucose (mg/dL) >600 H (75-99) mg/dL Urine Glucose (UA) 4+ H (Negative) 08/06/20 08/06/20 08/06/20 Range/Units 18:21 19:00 19:01 Sodium (137-145) mmol/L Chloride (98-107) mmol/L BUN (9-20) mg/dL Glucose (74-99) mg/dL POC Glucose (mg/dL) >600 H 570 H 568 H (75-99) mg/dL Urine Glucose (UA) (Negative) 08/06/20 Range/Units 20:18 Sodium (137-145) mmol/L Chloride (98-107) mmol/L BUN (9-20) mg/dL Glucose (74-99) mg/dL POC Glucose (mg/dL) 503 H (75-99) mg/dL Urine Glucose (UA) (Negative) Assessment and Plan Assessment: Acute hyperglycemia without ketosis Diabetes mellitus, poorly controlled Medical noncompliance A1c more than 10 Patient will be restarted on insulin sliding scale Patient will be given a dose of Levemir tonight and will resume his morning dose of Levemir in a.m. Patient counseled extensively about the importance of compliance with his insulin and close monitoring of his blood sugar Diabetic education Patient will need further education regarding diabetes mellitus, diet, and insulin regimen which should include short-acting and long-acting Pseudohyponatremia secondary to hyperglycemia Continue to monitor closely Hypertension controlled CODE STATUS: Full code DVT prophylaxis: Mechanical Discussed with: Patient, ER, RN Anticipated length of stay < than [address]: Home A total of 65 minutes was spent on the care of this complex patient more than 50% of the time was spent in counseling and care coordination.
[2020-08-07] MEDS: SODIUM CHLORIDE 0.9% 1,000 ML IV SCH ×2 (00:04→12:58)
[2020-08-07 06:50] LABS: Glucose,Whole Blood 106 mg/dL (75-99)
[2020-08-07] MEDS ORDERED: INSULIN DETEMIR (LEVEMIR) 100 UNIT/ML SYR SQ SCH (07:00)
[2020-08-07 07:14] VITALS: RESP 14
[2020-08-07] MEDS: INSULIN ASPART (NovoLOG) 100 UNIT/ML VIAL SQ SCH ×3 (08:07→17:39)
[2020-08-07] MEDS ORDERED: HEPARIN SODIUM,PORCINE 5,000 UNIT/ML 1 ML VIAL SQ SCH (09:00)
[2020-08-07] MEDS ORDERED: SERTRALINE 100 MG TAB PO SCH (09:00)
[2020-08-07 09:12] LABS: Basophils # (A) 0.04 X 10*3/uL (0.00-0.10); Basophils % (A) 0.7 %; Eosinophils # (A) 0.18 X 10*3/uL (0.04-0.35); Eosinophils % (A) 3.3 %; HCT 36.4 % (39.6-50.0); HGB 12.5 g/dL (13.0-17.0); Lymphocytes # (A) 1.39 X 10*3/uL (0.90-5.00); Lymphocytes % (A) 25.5 %; MCH 30.3 pg (27.0-32.0); MCHC 34.3 g/dL (32.0-37.0); MCV 88.1 fL (80.0-97.0); Mean Platelet Volume 9.6 fL (9.5-12.2); Monocytes # (A) 0.42 X 10*3/uL (0.20-1.00); Monocytes % (A) 7.7 %; Neutrophils # (A) 3.39 X 10*3/uL (1.80-7.70); Neutrophils % (A) 62.2 %; Platelet Count 159 X 10*3/uL (140-440); RBC 4.13 X 10*6/uL (4.40-5.60); RDW 12.8 % (11.5-14.5); WBC 5.45 X 10*3/uL (4.50-10.00)
[2020-08-07 09:32] LABS: Glucose,Whole Blood 183 mg/dL (75-99)
[2020-08-07 09:50] LABS: African American GFR (CKD) 86.8 (60.0-200.0); Albumin 3.4 g/dL (3.80-4.90); Albumin/Globulin Ratio 2.13 (1.60-3.17); Anion Gap 5.3 mmol/L (4.00-12.00); Calcium 7.9 mg/dL (8.7-10.3); Carbon Dioxide 29.7 mmol/L (21.6-31.8); Globulin 1.6 g/dL (1.6-3.3); Non-African American GFR(CKD) 74.9 (60.0-200.0); Potassium 3.8 mmol/L (3.5-5.5); Total Bilirubin 0.4 mg/dL (0.2-1.2)
[2020-08-07 11:48] LABS: Glucose,Whole Blood 250 mg/dL (75-99)
[2020-08-07 13:49] LABS: Appearance,Urine Clear (Clear); Bilirubin,Urine Negative (Negative); Blood,Urine Negative (Negative); Color,Urine Light Yellow; Glucose,Urine (UA) 4+ (Negative); Ketones,Urine Negative (Negative); Leukocyte Esterase,Urine Small (Negative); Mucus,Urine Rare /hpf; Nitrite,Urine Negative (Negative); PH, Urine 5.5 (5.0-8.0); Protein,Urine Negative (Negative); RBC,Urine 1 /hpf (0-5); Specific Gravity,Urine 1.014 (1.001-1.035); Squamous Epithelial Cell,Urine 2 /hpf (0-4); Urobilinogen,Urine <2.0 mg/dL (<2.0); WBC,Urine 7 /hpf (0-5)
[2020-08-07 14:44] VITALS: BP 123/68; PULSE 72; TEMP 97.6
[2020-08-07 17:05] LABS: Glucose,Whole Blood 237 mg/dL (75-99)
[2020-08-07 17:13] LABS: Hemoglobin A1C 12.3 % (4.0-6.0)
--- NOTE | 2020-08-07 17:29 | P.DS ---
Providers Date of admission: 08/06/20 17:15 Expected date of discharge: 08/07/20 Attending physician: Bruno Walker Primary care physician: Nonstaff Hospital Course: Discharge diagnoses: Hyperglycemia in a type 2 insulin-dependent diabetic -Increased Lantus to 46 Units per day. Pseudohyponatremia Hyperlipidemia Hospital course: Patient is a 71-year-old male with a past medical history of hyperlipidemia and insulin-dependent diabetes mellitus type 2. Patient receives care at [facility] and recently had blood work drawn resulting with his hemoglobin A1c greater than 10. It was reported that patient had been having poorly controlled blood sugar and presented to the emergency department after forgetting to take his insulin for the past 2 nights resulting in a blood glucose level greater than 600. Upon arrival to emergency department patient was found to have a serum glucose level of 796. Patient was given a 1500 mL bolus followed by a total of 16 units of fast acting and 10 units of long-acting insulin. Patient reports that he monitors his blood glucose levels daily and states typically they have been elevated around 130. Patient reports yesterday he took a long car ride out to [place] and upon returning yesterday evening his glucose levels were highly elevated so he came to the emergency department. Patient lives at home and cares for his with Parkinson's disease and early dementia. Patient reports having a difficult time remembering to take his medications. Upon assessment this morning, lab findings indicate blood glucose levels are now controlled at 106 and patient's CBC, BMP, and liver profile were unremarkable. Urinalysis also obtained and was negative for blood, ketones, or infection. Pt reports he is ready to go home. Pt very anxious to leave. Discussed multiple options regarding blood glucose management. Pt was very adamant that he would not take anything extra that we prescribed. Had a long conversation with patient regarding elevated blood glucose levels and what this can do to his heart and kidneys as well as the rest of his body. Pt agreed upon increasing his daily Lantus to 46 Units daily. Pt being discharged home, arrangements being made for home care, and patient instructed to follow-up with his PCP (Dr. Ferrara) as we discussed in 1-2 days. Physical exam: Patient seen and evaluated at the bedside. He denies having any complaints or pains. His blood glucose levels are 237 post prandial. Patient ate breakfast and lunch and tolerated well. He denies having any headache, lightheadedness, dizziness, chest pain or palpitations, shortness of breath, abdominal pain or discomfort, nausea, vomiting, or experiencing any changes in her difficulties with urinary or bowel function. General: non toxic, no distress, appears at stated age Derm: warm, dry Head: atraumatic, normocephalic, symmetric Eyes: EOMI, no lid lag, anicteric sclera Mouth: no lip lesion, mucus membranes moist Cardiovascular: S1S2 normal with regular rate and rhythm. No murmur, positive posterior tibial pulses bilaterally, cap refill less than 2 seconds. Lungs: Respirations even, regular, and unlabored. Lungs CTA bilaterally. No wheezing, rhonchi, rales, or crackles noted. Abdominal: soft, nontender to palpation, no guarding, no appreciable organomegaly Ext: no gross muscle atrophy, no edema, no contractures Neuro: GCS 15. Speech is clear. No focal neuro deficits Psych: Alert, oriented, appropriate affect A total of 45 minutes of time were spent preparing this complex discharge summary. Patient Condition at Discharge: Stable Plan - Discharge Summary New Discharge Prescriptions: Continue Aspirin 81 mg PO DAILY metFORMIN HCL [Glucophage] 1,000 mg PO BID Sertraline [Zoloft] 100 mg PO DAILY Simvastatin [Zocor] 40 mg PO DAILY Multivitamins, Thera [Multivitamin (formulary)] 0.5 tab PO BID Changed Insulin Glargine,Hum.rec.anlog [Lantus Solostar] 46 unit SQ HS #0 Discharge Medication List Aspirin 81 mg PO DAILY 12/29/13 [History] metFORMIN HCL [Glucophage] 1,000 mg PO BID 12/29/13 [History] Sertraline [Zoloft] 100 mg PO DAILY 06/28/20 [History] Simvastatin [Zocor] 40 mg PO DAILY 06/28/20 [History] Multivitamins, Thera [Multivitamin (formulary)] 0.5 tab PO BID 08/06/20 [H istory] Insulin Glargine,Hum.rec.anlog [Lantus Solostar] 46 unit SQ HS #0 08/07/20 [Rx] Follow up Appointment(s)/Referral(s): Nonstaff,Physician [Primary Care Provider] - 1-2 days Patient Instructions/Handouts: Diabetic Hyperglycemia (DC) Activity/Diet/Wound Care/Special Instructions: Activity: As tolerated Diet: Heart healthy and carb consistent diet Special Instructions: I am increasing your Insulin Glargine (Lantus) as we discussed. I am increasing your dose to 46 Units once daily because of your elevated blood glucose levels. You will take this medication twice daily in addition to your current regimen with metformin. Please make sure to continue to check your blood sugars daily and keep a journal of your blood sugars to bring with you to your next doctors appointment with Dr. Ferrara. Please make an appointment with your primary care doctor (Dr. Ferrara) through [facility] within the next 1-2 days so you can be scheduled for a follow up evaluation post hospitalization visit. Discharge Disposition: HOME WITH HOME HEALTH SERVICES
== END 2020-08-07 18:26 | disposition home health service (06) ==
LOC: EC 15:39 → 6NMEDSUR 17:15
PROVIDERS: ADMIT Internal Medicine; ATTEND Internal Medicine
DX: E11.65 Type 2 diabetes mellitus with hyperglycemia (principal); I10 Essential (primary) hypertension; F43.10 Post-traumatic stress disorder, unspecified; E87.1 Hypo-osmolality and hyponatremia; E11.36 Type 2 diabetes mellitus with diabetic cataract; E78.5 Hyperlipidemia, unspecified; Z91.14 Patient's other noncompliance with medication regimen; Z79.4 Long term (current) use of insulin; Z79.82 Long term (current) use of aspirin; Z79.899 Other long term (current) drug therapy; Z88.0 Allergy status to penicillin; Z91.81 History of falling; Z20.828 Contact with and (suspected) exposure to other viral communicable diseases
CPT/HCPCS: 36415; 80053; 81001; 81003; 82009; 83036; 85025; 87635; 96360; 96361; 96372; 99284

== ENCOUNTER 2021-03-18 14:23 | Observation (INO) | payer MEDICARE, OTHER ==
[2021-03-18 16:06] LABS: Basophils % (A) 0 %; Eosinophils # (A) 0.1 k/uL (0-0.7); Eosinophils % (A) 1 %; HCT 43.5 % (39.0-53.0); HGB 14.5 gm/dL (13.0-17.5); Lymphocytes # (A) 1.3 k/uL (1.0-4.8); Lymphocytes % (A) 19 %; MCH 30.3 pg (25.0-35.0); MCHC 33.4 g/dL (31.0-37.0); MCV 90.8 fL (80.0-100.0); Mean Platelet Volume 6.7; Monocytes # (A) 0.4 k/uL (0-1.0); Monocytes % (A) 6 %; Neutrophils # (A) 4.9 k/uL (1.3-7.7); Neutrophils % (A) 72 %; Platelet Count 199 k/uL (150-450); RBC 4.79 m/uL (4.30-5.90); RDW 13.7 % (11.5-15.5); WBC 6.8 k/uL (3.8-10.6)
[2021-03-18 16:16] LABS: ALT 19 U/L (4-49); AST 42 U/L (17-59); African American GFR (CKD) 81 (>60 ml/min/1.73 sqM); Albumin 4.2 g/dL (3.5-5.0); Alcohol <10 mg/dL; Alkaline Phosphatase 48 U/L (38-126); Anion Gap 12 mmol/L; Blood Urea Nitrogen 22 mg/dL (9-20); Calcium 8.9 mg/dL (8.4-10.2); Carbon Dioxide 21 mmol/L (22-30); Chloride 105 mmol/L (98-107); Glucose 189 mg/dL (74-99); Non-African American GFR(CKD) 70 (>60 ml/min/1.73 sqM); Potassium 4.8 mmol/L (3.5-5.1); Sodium 138 mmol/L (137-145); Total Bilirubin 0.5 mg/dL (0.2-1.3)
[2021-03-18] MEDS ORDERED: SODIUM CHLORIDE 0.9% 500 ML 500 ML IV STA (18:11)
--- NOTE | 2021-03-18 18:18 | ED ---
General Adult HPI - General Chief complaint: Weakness Stated complaint: slip & falls, sent by PCP Time Seen by Provider: 03/18/21 17:41 Source: patient Mode of arrival: ambulatory Limitations: no limitations - History of Present Illness Initial comments: 71-year-old male presents to the emergency department, accompanied by his spouse, for evaluation of multiple falls. Patient states his spouse is better able to explain what is going on. Spouse reports that patient has had an increasing number of falls over the past 1-2 months. She states it appears that he trips over his own feet or his legs "just give out." Patient denies dizziness or lightheadedness preceding falls. Spouse states the patient fell 3 times on Thursday and once yesterday. He was able to get himself up independently after each fall and did not sustain injuries. Patient's spouse also reports the patient has had more frequent episodes of confusion and is often unable to identify the month or the year. Patient denies fever, chills, headache, neck and back pain, chest pain and shortness of breath, nausea and vomiting, hematuria, hematochezia, or lower extremity edema. - Related Data Home Medications Medication Instructions Recorded Confirmed Aspirin 81 mg PO DAILY 12/29/13 03/18/21 Sertraline [Zoloft] 100 mg PO DAILY 06/28/20 03/18/21 Multivitamins, Thera [Multivitamin 1 tab PO DAILY 08/06/20 03/18/21 (formulary)] Aspirin EC [Ecotrin Low Dose] 81 mg PO DAILY 03/18/21 03/18/21 Insulin Glargine,Hum.rec.anlog 50 unit SQ HS 03/18/21 03/18/21 [Lantus Solostar Pen] lisinopriL [Zestril] 2.5 mg PO DAILY 03/18/21 03/18/21 metFORMIN HCL [metFORMIN HCL ER 1,000 mg PO BID 03/18/21 03/18/21 Osmotic] Allergies Allergy/AdvReac Type Severity Reaction Status Date / Time bee venom protein (honey bee) Allergy Rash/Hives Verified 03/18/21 20:48 Penicillins Allergy Rash/Hives Verified 03/18/21 20:48 Review of Systems ROS Statement: Those systems with pertinent positive or pertinent negative responses have been documented in the HPI. ROS Other: All systems not noted in ROS Statement are negative. Past Medical History Past Medical History: Diabetes Mellitus, Hypertension Additional Past Medical History / Comment(s): . History of Any Multi-Drug Resistant Organisms: None Reported Past Surgical History: No Surgical Hx Reported Additional Past Surgical History / Comment(s): . Past Anesthesia/Blood Transfusion Reactions: No Reported Reaction Past Psychological History: PTSD Smoking Status: Never smoker Past Alcohol Use History: None Reported Past Drug Use History: None Reported - Past Family History Family Family Medical History: No Reported History General Exam Limitations: altered mental status (Patient is alert and oriented to person and place but not to time. Spouse provides details and context to HPI.) General appearance: alert, in no apparent distress Head exam: Present: atraumatic, normocephalic, normal inspection Eye exam: Present: normal appearance, PERRL, EOMI. Absent: scleral icterus, conjunctival injection, periorbital swelling Neck exam: Present: normal inspection. Absent: tenderness, meningismus, lymphadenopathy Respiratory exam: Present: normal lung sounds bilaterally. Absent: respiratory distress, wheezes, rales, rhonchi, stridor Cardiovascular Exam: Present: regular rate, normal rhythm, normal heart sounds. Absent: systolic murmur, diastolic murmur, rubs, gallop, clicks GI/Abdominal exam: Present: soft, normal bowel sounds. Absent: distended, tenderness, guarding, rebound, rigid Extremities exam: Present: normal inspection, full ROM, normal capillary refill. Absent: tenderness, pedal edema, joint swelling, calf tenderness Back exam: Present: normal inspection, full ROM. Absent: tenderness, muscle spasm, vertebral tenderness Neurological exam: Present: alert, other (Oriented to person and place, not oriented to time) Psychiatric exam: Present: normal affect, normal mood Skin exam: Present: warm, dry, intact, normal color. Absent: rash Course Vital Signs 03/18/21 03/18/21 03/19/21 14:33 22:36 00:07 Temperature 98.2 F 98.7 F Pulse Rate 92 69 63 Respiratory 18 18 18 Rate Blood Pressure 102/76 117/74 135/75 O2 Sat by Pulse 95 99 96 Oximetry 03/19/21 02:31 Temperature 97.5 F L Pulse Rate 66 Respiratory 16 Rate Blood Pressure 125/77 O2 Sat by Pulse 94 L Oximetry Medical Decision Making - Medical Decision Making 71-year-old male was evaluated for complaints of multiple falls and increased confusion. Upon physical exam, patient appears alert and well, with no areas of injury. However patient has difficulty articulating the circumstances of his falling and seems to have difficulty with recall therefore deferring explanation to his . Patient is alert and oriented to person and place, but not time, which spouse states has been an ongoing issue for the past 2-3 weeks. No pertinent lab findings. EKG was obtained and shows normal sinus rhythm with right bundle branch block; no previous EKG available for comparison. Chest x- ray showed an area of concern at the right hilum thereby prompting CT of the chest contrast which showed extensive mediastinal and bronchial adenopathy with calcification that is consistent with old granuloma anxious disease, as well as patchy pulmonary interstitial infiltrates, and possible Sarcoidosis. Additionally CT of the head was obtained and revealed senescent changes with no acute process. Due to multiple falls, ongoing weakness, and risk of injury, patient will be admitted to the hospital for further evaluation and treatment. This patient's case was discussed with my attending Dr. Sutton. - Lab Data Result diagrams: 03/18/21 15:51 03/18/21 15:51 Lab Results 03/18/21 03/18/21 03/18/21 Range/Units 15:51 15:51 15:51 WBC 6.8 (3.8-10.6) k/uL RBC 4.79 (4.30-5.90) m/uL Hgb 14.5 (13.0-17.5) gm/dL Hct 43.5 (39.0-53.0) % MCV 90.8 (80.0-100.0) fL MCH 30.3 (25.0-35.0) pg MCHC 33.4 (31.0-37.0) g/dL RDW 13.7 (11.5-15.5) % Plt Count 199 (150-450) k/uL MPV 6.7 Neutrophils % 72 % Lymphocytes % 19 % Monocytes % 6 % Eosinophils % 1 % Basophils % 0 % Neutrophils # 4.9 (1.3-7.7) k/uL Lymphocytes # 1.3 (1.0-4.8) k/uL Monocytes # 0.4 (0-1.0) k/uL Eosinophils # 0.1 (0-0.7) k/uL Basophils # 0.0 (0-0.2) k/uL Sodium 138 (137-145) mmol/L Potassium 4.8 (3.5-5.1) mmol/L Chloride 105 (98-107) mmol/L Carbon Dioxide 21 L (22-30) mmol/L Anion Gap 12 mmol/L BUN 22 H (9-20) mg/dL Creatinine 1.06 (0.66-1.25) mg/dL Est GFR (CKD-EPI)AfAm 81 (>60 ml/min/1.73 sqM) Est GFR (CKD-EPI)NonAf 70 (>60 ml/min/1.73 sqM) Glucose 189 H (74-99) mg/dL Calcium 8.9 (8.4-10.2) mg/dL Total Bilirubin 0.5 (0.2-1.3) mg/dL AST 42 (17-59) U/L ALT 19 (4-49) U/L Alkaline Phosphatase 48 (38-126) U/L Troponin I <0.012 (0.000-0.034) ng/mL Total Protein 7.0 (6.3-8.2) g/dL Albumin 4.2 (3.5-5.0) g/dL Serum Alcohol <10 mg/dL - EKG Data -: EKG Interpreted by La EKG shows normal: sinus rhythm Rate: normal EKG Comments: EKG was obtained at 1926. Shows normal sinus rhythm with right bundle branch block. Ventricular rate 70, KS interval 178, QRS duration 130, QT/QTc 434/468. - Radiology Data Radiology results: report reviewed, image reviewed Chest x-ray was obtained. Report was reviewed in its entirety. Impression per Dr. Flaherty is fullness at the right hilum could relate to prominent pulmonary vasculature versus an underlying mass. Recommend correlation with cross sectional imaging. CT of the chest with contrast was obtained. Report was reviewed in entirety. Impression per Dr. Jonas is #1. extensive mediastinal and bronchial adenopathy with calcification that is consistent with old granulomatous disease. Patchy pulmonary interstitial infiltrates. Sarcoidosis possible. Lymphadenopathy also present on the old abdomen computed tomography scan from 01/25/2010. #2. Cholelithiasis CT of the brain was obtained. Report was reviewed in its entirety. Impression per Dr. Flaherty is senescent changes without an acute intracranial process. Disposition Clinical Impression: Falls frequently, Weakness, Fall Disposition: ADMITTED IP TO THIS [facility] Condition: Serious Decision Date: 03/19/21 Decision Time: 02:15
--- NOTE | 2021-03-18 20:25 | XR ---
EXAMINATION TYPE: XR chest 2V DATE OF EXAM: 03/18/2021 COMPARISON: CT abdomen pelvis 01/25/2010 HISTORY: Weakness TECHNIQUE: Frontal and lateral views of the chest are obtained. FINDINGS: The cardiac silhouette is within normal limits. There is fullness at the right hilum. No consolidation, effusion or pneumothorax. IMPRESSION: Fullness at the right hilum could relate to prominent pulmonary vasculature versus an un derlying mass. Recommend correlation with cross-sectional imaging.
--- NOTE | 2021-03-18 20:41 | CT ---
EXAMINATION TYPE: CT brain wo con DATE OF EXAM: 03/18/2021 COMPARISON: CT brain on 2020 HISTORY: Recent falls CT DLP: 1078.4 mGycm Automated exposure control for dose reduction was used. FINDINGS: No acute intracranial hemorrhage, large vessel territory infarct, mass, mass effect, midline shift or extra-axial fluid collection. No hydrocephalus. The decker-white distinction is maintained. Subarachno id basal cisterns and cerebral sulci are not effaced. Age appropriate cerebral volume retraction. Par tially empty sella. No osseous injury. The globes and orbits are within normal limits. The visualized paranasal sinuses a nd ethmoid air cells are well-developed and pneumatized. Opacification of a few mastoid air cells miguel aterally. IMPRESSION: SENESCENT CHANGES WITHOUT AN ACUTE INTRACRANIAL PROCESS.
[2021-03-18] MEDS ORDERED: RX INFO: IV CONTRAST WAS GIVEN 1 EACH MISC MISCELLANE PRN (21:06)
--- NOTE | 2021-03-18 22:53 | CT ---
EXAMINATION TYPE: CT chest w con DATE OF EXAM: 03/18/2021 COMPARISON: None HISTORY: weakness CT DLP: 269.6 mGycm Automated exposure control for dose reduction was used. CONTRAST: Performed with IV Contrast, patient injected with 100 mL of Isovue 300. Images obtained from the thoracic inlet to the diaphragm with IV contrast. There are multiple enlarged bronchial lymph nodes that measure up to almost 2 cm. There are multiple enlarged partly calcified mediastinal lymph nodes that measure up to 2.3 cm. Thoracic aorta is intact . There are calcified granulomata at the pulmonary mitra. There are a few patchy areas of increased in terstitial density in both lungs. These are seen mainly in the posterior lung sifuentes. There is no ple ural effusion. There is no pericardial effusion. Heart size is normal. The thoracic spine is intact. There is no compression fracture. There are calcified gallstones noted. IMPRESSION: Extensive mediastinal and bronchial adenopathy with calcification that is consistent with old granulo matous disease. Patchy pulmonary interstitial infiltrates. Sarcoidosis is possible. Lymphadenopathy a lso present on the old abdomen CT scan of 01/25/2010. 2. Cholelithiasis.
[2021-03-19] MEDS ORDERED: ACETAMINOPHEN TAB 325 MG TAB PO PRN (01:50)
[2021-03-19] MEDS: SODIUM CHLORIDE 0.9% 1,000 ML IV SCH ×2 (02:28→15:11)
[2021-03-19] MEDS ORDERED: DEXTROSE 50% SYRINGE 50 ML IVP STA (09:42)
[2021-03-19 10:10] LABS: Glucose,Whole Blood 36 mg/dL (75-99)
[2021-03-19 10:10] LABS: Glucose,Whole Blood 35 mg/dL (75-99)
[2021-03-19 10:35] LABS: Glucose,Whole Blood 158 mg/dL (75-99)
[2021-03-19 12:30] LABS: Appearance,Urine Clear (Clear); Bacteria,Urine Rare /hpf; Bilirubin,Urine Negative (Negative); Blood,Urine Negative (Negative); Color,Urine Yellow; Glucose,Urine (UA) 1+ (Negative); Ketones,Urine Negative (Negative); Leukocyte Esterase,Urine Large (Negative); Mucus,Urine Few /hpf; Nitrite,Urine Negative (Negative); PH, Urine 5.5 (5.0-8.0); Protein,Urine Negative (Negative); RBC,Urine 4 /hpf (0-5); Specific Gravity,Urine 1.045 (1.001-1.035); Squamous Epithelial Cell,Urine 1 /hpf (0-4); Urobilinogen,Urine <2.0 mg/dL (<2.0); WBC,Urine 18 /hpf (0-5)
--- NOTE | 2021-03-19 13:21 | P.HPIM ---
History of Present Illness 71-year-old the pleasant male was brought in because of multiple falls and possible syncopal episode without any seizure-like activity. This has been going on for A few weeks around 3-4 weeks. Patient denied any lightheadedness preceding the falls and syncopal episodes. Patient did have a similar event tested as well as Thursday. Patient is found to be hypoglycemic with blood sugars going low up to 35. Patient was also confused apparently earlier today with the supplementation of glucoses confusion completely resolved. Patient was alert and oriented 3 when I valid the patient. CT of the head did not show any significant abnormality EKG showed right bundle branch block without any acute ST-T wave changes or any bradycardia arrhythmias. CT of the chest was done which showed bronchial adenopathy calcifications possi bility of a granulomatous disease and patchy pulmonary infiltrates and hilar lymphadenopathy. There was an incidental finding of cholelithiasis as well although patient denied any symptoms of cholelithiasis or cholecystitis. Patient's serum calcium is within normal limits. REVIEW OF SYSTEMS: CONSTITUTIONAL: No fever, no malaise, no fatigue. HEENT: No recent visual problems or hearing problems. Denied any sore throat. CARDIOVASCULAR: No chest pain, orthopnea, PND, no palpitations, no syncope. PULMONARY: No shortness of breath, no cough, no hemoptysis. GASTROINTESTINAL: No diarrhea, no nausea, no vomiting, no abdominal pain. NEUROLOGICAL: No headaches, no weakness, no numbness. HEMATOLOGICAL: Denies any bleeding or petechiae. GENITOURINARY: Denies any burning micturition, frequency, or urgency. MUSCULOSKELETAL/RHEUMATOLOGICAL: Denies any joint pain, swelling, or any muscle pain. ENDOCRINE: Denies any polyuria or polydipsia. The rest of the 14-point review of systems is negative. PHYSICAL EXAMINATION: GENERAL: The patient is alert and oriented x3, not in any acute distress. Thin built HEENT: Pupils are round and equally reacting to light. EOMI. No scleral icterus. No conjunctival pallor. Normocephalic, atraumatic. No pharyngeal erythema. No thyromegaly. CARDIOVASCULAR: S1 and S2 present. No murmurs, rubs, or gallops. PULMONARY: Chest is clear to auscultation, no wheezing or crackles. ABDOMEN: Soft, nontender, nondistended, normoactive bowel sounds. No palpable organomegaly. MUSCULOSKELETAL: No joint swelling or deformity. EXTREMITIES: No cyanosis, clubbing, or pedal edema. NEUROLOGICAL: Gross neurological examination did not reveal any focal deficits. SKIN: No rashes. Assessment and plan -Possible syncopal episodes may be secondary to hypoglycemia. Patient will be monitored on lunchroom monitor Allsop an echo cardiac exam patient doesn't have any significant murmur on exam. Patient is thin built. Will hold off for on metformin as well as his insulin patient will be discharged on sliding scale insulin -Possibly early stages of dementia: We'll order mini cognitive testing -Generalized weakness, deconditioning: Secondary to age-related muscle atrophy -Possibility of sarcoidosis depending on the chest CT findings patient will be referred to pulmonology as an outpatient -Incidental findings of cholelithiasis without any symptoms no further intervention at this time follow up with general surgery as an outpatient -Benign prostatic hypertrophy for which patient is on tamsulosin which will be continued -Hypertension patient blood pressures that high at this time will patient is an elderly dose of low-dose of lisinopril probably for proteinuria from diabetes mellitus for now we'll hold off on this medication. DVT prophylaxis: Lovenox Past Medical History Past Medical History: Diabetes Mellitus, Hypertension Additional Past Medical History / Comment(s): . History of Any Multi-Drug Resistant Organisms: None Reported Past Surgical History: No Surgical Hx Reported Additional Past Surgical History / Comment(s): . Past Anesthesia/Blood Transfusion Reactions: No Reported Reaction Past Psychological History: PTSD Smoking Status: Never smoker Past Alcohol Use History: None Reported Past Drug Use History: None Reported - Past Family History Family Family Medical History: No Reported History Medications and Allergies Home Medications Medication Instructions Recorded Confirmed Type Aspirin 81 mg PO DAILY 12/29/13 03/18/21 History Sertraline [Zoloft] 100 mg PO DAILY 06/28/20 03/18/21 History Multivitamins, Thera [Multivitamin 1 tab PO DAILY 08/06/20 03/18/21 History (formulary)] Aspirin EC [Ecotrin Low Dose] 81 mg PO DAILY 03/18/21 03/18/21 History Insulin Glargine,Hum.rec.anlog 50 unit SQ HS 03/18/21 03/18/21 History [Lantus Solostar Pen] lisinopriL [Zestril] 2.5 mg PO DAILY 03/18/21 03/18/21 History metFORMIN HCL [metFORMIN HCL ER 1,000 mg PO BID 03/18/21 03/18/21 History Osmotic] Allergies Allergy/AdvReac Type Severity Reaction Status Date / Time bee venom protein (honey bee) Allergy Rash/Hives Verified 03/18/21 20:48 Penicillins Allergy Rash/Hives Verified 03/18/21 20:48 Physical Exam Vitals: Vital Signs Temp Pulse Resp BP Pulse Ox 03/19/21 11:00 94.7 F L 62 18 03/19/21 09:20 62 18 130/78 98 03/19/21 06:11 97.6 F 69 18 129/70 95 03/19/21 02:31 97.5 F L 66 16 125/77 94 L 03/19/21 00:07 98.7 F 63 18 135/75 96 03/18/21 22:36 69 18 117/74 99 03/18/21 14:33 98.2 F 92 18 102/76 95 Results CBC & Chem 7: 03/18/21 15:51 03/18/21 15:51 Labs: Abnormal Lab Results - Last 24 Hours (Table) 03/18/21 03/18/21 03/19/21 Range/Units 12:10 15:51 09:37 Carbon Dioxide 21 L (22-30) mmol/L BUN 22 H (9-20) mg/dL Glucose 189 H (74-99) mg/dL POC Glucose (mg/dL) 35 L (75-99) mg/dL Ur Specific [place] 1.045 H (1.001-1.035) Urine Glucose (UA) 1+ H (Negative) Ur Leukocyte Esterase Large H (Negative) Urine WBC 18 H (0-5) /hpf Urine Bacteria Rare H (None) /hpf Urine Mucus Few H (None) /hpf 03/19/21 03/19/21 Range/Units 09:38 10:31 Carbon Dioxide (22-30) mmol/L BUN (9-20) mg/dL Glucose (74-99) mg/dL POC Glucose (mg/dL) 36 L 158 H (75-99) mg/dL Ur Specific [place] (1.001-1.035) Urine Glucose (UA) (Negative) Ur Leukocyte Esterase (Negative) Urine WBC (0-5) /hpf Urine Bacteria (None) /hpf Urine Mucus (None) /hpf
[2021-03-19] MEDS: TAMSULOSIN 0.4 MG CAP.ER.24H PO SCH (16:35)
[2021-03-19 18:49] LABS: Glucose,Whole Blood 218 mg/dL (75-99)
[2021-03-19 20:23] LABS: Glucose,Whole Blood 285 mg/dL (75-99)
[2021-03-20] MEDS: SODIUM CHLORIDE 0.9% 1,000 ML IV SCH ×3 (03:00→21:00)
[2021-03-20 06:40] LABS: Appearance,Urine Clear (Clear); Bilirubin,Urine Negative (Negative); Blood,Urine Negative (Negative); Color,Urine Light Yellow; Glucose,Urine (UA) 4+ (Negative); Ketones,Urine Negative (Negative); Leukocyte Esterase,Urine Negative (Negative); Nitrite,Urine Negative (Negative); PH, Urine 5.5 (5.0-8.0); Protein,Urine Negative (Negative); Specific Gravity,Urine 1.012 (1.001-1.035); Urobilinogen,Urine <2.0 mg/dL (<2.0)
[2021-03-20 07:19] LABS: Glucose,Whole Blood 152 mg/dL (75-99)
[2021-03-20] MEDS: TAMSULOSIN 0.4 MG CAP.ER.24H PO SCH (08:11)
[2021-03-20] MEDS: MULTIVITAMINS, THERA 1 EACH TAB PO SCH (08:11)
[2021-03-20] MEDS: ASPIRIN 81 MG PO SCH (08:11)
[2021-03-20] MEDS: SERTRALINE 100 MG TAB PO SCH (08:11)
[2021-03-20] MEDS: ENOXAPARIN 40 MG/0.4 ML SYRINGE SQ SCH (08:11)
[2021-03-20 12:15] LABS: Glucose,Whole Blood 407 mg/dL (75-99)
[2021-03-20] MEDS: INSULIN ASPART (NovoLOG) 100 UNIT/ML VIAL SQ SCH ×3 (13:20→21:00)
[2021-03-20 17:45] LABS: Glucose,Whole Blood 125 mg/dL (75-99)
[2021-03-20 20:50] LABS: Glucose,Whole Blood 340 mg/dL (75-99)
--- NOTE | 2021-03-20 21:34 | P.PN ---
Subjective Progress Note Date: 03/20/21 71-year-old the pleasant male was brought in because of multiple falls and possible syncopal episode without any seizure-like activity. This has been going on for A few weeks around 3-4 weeks. Patient denied any lightheadedness preceding the falls and syncopal episodes. Patient did have a similar event tested as well as Thursday. Patient is found to be hypoglycemic with blood sugars going low up to 35. Patient was also confused apparently earlier today with the supplementation of glucoses confusion completely resolved. Patient was alert and oriented 3 when I valid the patient. CT of the head did not show any significant abnormality EKG showed right bundle branch block without any acute ST-T wave changes or any bradycardia arrhythmias. CT of the chest was done which showed bronchial adenopathy calcifications possibility of a granulomatous disease and patchy pulmonary infiltrates and hil ar lymphadenopathy. There was an incidental finding of cholelithiasis as well although patient denied any symptoms of cholelithiasis or cholecystitis. Patient's serum calcium is within normal limits. 03/20/2021 Patient is evaluated today at the bedside, he is sitting up in bed and is pending an evaluation from PT OT. Patient states that he has been falling at home he does live at home with his . He has fluids running at 0.9 at 75, we are still pending an echocardiogram. Patient is again alert and oriented 3 at the time of my assessment. He's had a urinalysis completed 2 which is e ssentially within normal limits, alcohol is negative. COVID is negative. He is now hyperglycemic with a blood sugar of 407. We are holding metformin as he was hypoglycemic with a blood sugar of 35, metformin however does not generally cause hypoglycemia. Patient states that he has had poor oral intake at home. Speech therapy completed a mini cog today with a score of 9/30 using the SLUMS assessment, overal impression was strong posibility of dementia as pts cognition was not felt to be part of the normal aging process. Recommends neurology f/u. ROS: Constitutional: Denied any fatigue denied any fever. Cardio vascular: denied any chest pain, palpitations Gastrointestinal denied any nausea vomiting Pulmonary: Denied any shortness of breath cough Neurologic denied any new focal deficits All inpatient medications were reviewed and appropriate changes in these medications as dictated in the interval history and assessment and plan. PHYSICAL EXAMINATION: GENERAL: The patient is alert and oriented x3, not in any acute distress. Thin built HEENT: Pupils are round and equally reacting to light. EOMI. No scleral icterus. No conjunctival pallor. Normocephalic, atraumatic. No pharyngeal erythema. No thyromegaly. CARDIOVASCULAR: S1 and S2 present. No murmurs, rubs, or gallops. PULMONARY: Chest is clear to auscultation, no wheezing or crackles. ABDOMEN: Soft, nontender, nondistended, normoactive bowel sounds. No palpable organomegaly. MUSCULOSKELETAL: No joint swelling or deformity. EXTREMITIES: No cyanosis, clubbing, or pedal edema. NEUROLOGICAL: Gross neurological examination did not reveal any focal deficits. SKIN: No rashes. Assessment and plan -Possible syncopal episodes may be secondary to hypoglycemia. No events noted on telemetry and no further episodes, also check orthos. -Possibly early stages of dementia: mini cog score suggestive of early dementia as noted above, f/u neurology -Generalized weakness, deconditioning: Secondary to age-related muscle atrophy PT/OT -Possibility of sarcoidosis depending on the chest CT findings patient will be referred to pulmonology as an outpatient -Incidental findings of cholelithiasis without any symptoms no further intervention at this time follow up with general surgery as an outpatient -Benign prostatic hypertrophy for which patient is on tamsulosin which will be continued -Hypertension, on low dose of lisinopril, holding for now BP on the lower side. Cont with IV fluids Diabetes Mellitus type II with hypoglycemia, now presenting with hyperglycemia - metformin on hold continue with NovoLog sliding scale and we will resume Levemir DVT prophylaxis: Lovenox Full code Patient is resumed on all home medications, we will continue to hold metformin. Patient's home dose of lisinopril was discontinued at this time as blood pressures are on the lower side. Please continue with IV fluids. We are still pending an echocardiogram as well as a PT OT evaluation. Neurology and Gen Surgery outpatient. Objective - Vital Signs Vital signs: Vital Signs Temp 97.7 F 03/20/21 07:00 Pulse 73 03/20/21 07:00 Resp 17 03/20/21 07:00 BP 114/69 03/20/21 07:00 Pulse Ox 94 L 03/20/21 07:00 Intake & Output 10/05/21 10/06/21 10/06/21 18:59 06:59 18:59 Intake Total 120 Output Total 275 Balance 120 -275 Weight 63.503 kg Intake: Oral 120 Output: Urine 275 Other: Voiding Method Toilet # Voids 1 # Bowel Movements 1 - Labs CBC & Chem 7: 03/18/21 15:51 03/18/21 15:51 Labs: Abnormal Lab Results - Last 24 Hours (Table) 03/19/21 03/19/21 03/20/21 Range/Units 18:47 20:22 06:10 POC Glucose (mg/dL) 218 H 285 H (75-99) mg/dL Urine Glucose (UA) 4+ H (Negative) 03/20/21 03/20/21 Range/Units 07:17 12:12 POC Glucose (mg/dL) 152 H 407 H (75-99) mg/dL Urine Glucose (UA) (Negative) Assessment and Plan Time with Patient: Greater than 30
[2021-03-21 06:02] LABS: African American GFR (CKD) 84 (>60 ml/min/1.73 sqM); Anion Gap 4 mmol/L; Blood Urea Nitrogen 18 mg/dL (9-20); Calcium 8.4 mg/dL (8.4-10.2); Carbon Dioxide 27 mmol/L (22-30); Chloride 106 mmol/L (98-107); Glucose 158 mg/dL (74-99); Non-African American GFR(CKD) 73 (>60 ml/min/1.73 sqM); Potassium 4.1 mmol/L (3.5-5.1); Sodium 137 mmol/L (137-145)
[2021-03-21] MEDS ORDERED: INSULIN DETEMIR (LEVEMIR) 100 UNIT/ML SYR SQ SCH (07:00)
[2021-03-21 07:10] LABS: Glucose,Whole Blood 178 mg/dL (75-99)
[2021-03-21 08:02] VITALS: BP 120/70; PULSE 69; RESP 15; TEMP 97.9
[2021-03-21] MEDS: ASPIRIN 81 MG PO SCH (08:22)
[2021-03-21] MEDS: TAMSULOSIN 0.4 MG CAP.ER.24H PO SCH (08:22)
[2021-03-21] MEDS: MULTIVITAMINS, THERA 1 EACH TAB PO SCH (08:22)
[2021-03-21] MEDS: INSULIN ASPART (NovoLOG) 100 UNIT/ML VIAL SQ SCH (08:23)
[2021-03-21] MEDS: ENOXAPARIN 40 MG/0.4 ML SYRINGE SQ SCH (08:23)
[2021-03-21] MEDS: SERTRALINE 100 MG TAB PO SCH (10:29)
[2021-03-21] MEDS: SODIUM CHLORIDE 0.9% 1,000 ML IV SCH (10:30)
[2021-03-21 11:55] LABS: Glucose,Whole Blood 227 mg/dL (75-99)
--- NOTE | 2021-03-21 12:44 | ECHOF ---
Referral Reason:Syncope MEASUREMENTS -------- HEIGHT: 172.7 cm WEIGHT: 63.5 kg BP: IVSd: 1.1 cm (0.6 - 1.1) LVIDd: 2.7 cm (3.9 - 5.3) LVPWd: 1.1 cm (0.6 - 1.1) IVSs: 1.3 cm LVIDs: 2.0 cm LVPWs: 1.2 cm LAESV Index (A-L): 16.89 ml/m Ao Diam: 2.8 cm (2.0 - 3.7) AV Cusp: 1.8 cm (1.5 - 2.6) MV EXCURSION: 15.965 mm (> 18.000) MV EF SLOPE: 105 mm/s (70 - 150) EPSS: 0.3 cm MV E Nakul: 0.35 m/s MV DecT: 197 ms MV A Nakul: 0.64 m/s MV E/A Ratio: 0.55 RAP: 5.00 mmHg RVSP: 11.95 mmHg FINDINGS -------- Sinus rhythm. This was a technically good study. LV size, wall thickness and systolic function are normal, with an EF greater than 55%. The left shweta tricular size is normal. The right ventricle is normal in size. Normal LA size by volume 22+/-6 ml/m2. The right atrial size is normal. The aortic valve is trileaflet, and appears structurally normal. No aortic stenosis or regurgitation. Mild mitral regurgitation is present. Mild tricuspid regurgitation present. Right ventricular systolic pressure is normal at < 35 mmHg. There is no pulmonic regurgitation present. There is no pericardial effusion. CONCLUSIONS -------- 1. LV size, wall thickness and systolic function are normal, with an EF greater than 55%. 2. The left ventricular size is normal. 3. The right ventricle is normal in size. 4. Normal LA size by volume 22+/-6 ml/m2. 5. The right atrial size is normal. 6. The aortic valve is trileaflet, and appears structurally normal. No aortic stenosis or regurgitati on. 7. Mild mitral regurgitation is present. 8. Mild tricuspid regurgitation present. 9. There is no pericardial effusion. [employer]IMMER: Cherelle Lopez RDCS
--- NOTE | 2021-03-21 14:02 | P.DS ---
Providers Date of admission: 03/19/21 01:38 Attending physician: Greg Dykes MD Primary care physician: Physician Nonstaff Hospital Course: Final diagnoses -Possible syncopal episodes may be secondary to hypoglycemia -Possibly early stages of dementia: mini cog score suggestive of early dementia as noted above, f/u neurology -Generalized weakness, deconditioning: Secondary to age-related muscle atrophy PT/OT -Possibility of sarcoidosis depending on the chest CT findings patient will be referred to pulmonology as an outpatient -Incidental findings of cholelithiasis without any symptoms no further intervention at this time follow up with general surgery as an outpatient -Benign prostatic hypertrophy -Hypertension Diabetes Mellitus type II with hypoglycemia Discharge disposition Patient was evaluated by PT OT and was cleared to go home. Patient's family is at the bedside is agreeable to this plan. He presented with hypoglycemia blood sugar was 35 on admission. Orthostatic blood pressures have been negative. Patient will need to follow-up with PCP, neurology, pulmonology, general surgery. Repeat labs in 2-3 days. Hospital course This is a pleasant 71-year-old male was brought into the for multiple falls and possible syncope without any seizure-like activity. This is going on for about 3-4 weeks at home. Patient denied any lightheadedness preceding the falls and syncope episodes. Patient is thought to be had with the blood sugars as low as 35. He was confused earlier in the day however once his blood sugars have normalized patient is alert and oriented 3. CT of the head did not show any significant abnormality, EKG showed right bundle-branch block without any acute ST or T-wave changes or any bradycardia or arrhythmias. CT of the chest was done which showed bronchial adenopathy cough medications possibility of a gra nular tablets disease and patchy pulmonary infiltrates and hilar lymphadenopathy. There is also an incidental finding of cholelithiasis however patient denies any symptoms is afebrile. Serum calcium is within normal limits. Patient is developing PT OT who recommended home. Urinalysis was completed 2 which is normal limits. COVID is negative. Patient is now hyperglycemic with sugars in the 400s, we will resume his Levemir on discharge and his metformin. Fish therapy completed a mini cognitive assessment and plan the patient with a score of 9 out of 30 using the slums assessment. The overall impression was strong possibility of dementia as patient's cognition was not felt to be part of the normal aging process. Patient was giving discharge instructions to follow up with neurology information provided. Echocardiogram was completed which shows an EF of 55%. Patient's blood count was within normal limits, electric panels within normal limits, BUN 18, creatinine 1.02, troponin is negative. 03/21/2021 Patient was evaluated the bedside he is alert and oriented 3. He denies any chest pain, cough, palpitations, shortness of breath. He denies any nausea vomiting abdominal pain or diarrhea. He is ambulating without difficulty. He states that he is overall feeling well and ready to go home. Vital signs are stable today, afebrile, heart rate 60s sinus rhythm, blood pressure 120/70, 98% on room air. We did hold his lisinopril on discharge, decrease Lantus to 40 units. Please see medication reconciliation for list of current medications. Thank you for allowing us to participate in the care of this patient. Patient Condition at Discharge: Stable Plan - Discharge Summary Discharge Rx Participant: No New Discharge Prescriptions: New Tamsulosin [Flomax] 0.4 mg PO PC-BRKFST #30 cap Acetaminophen Tab [Tylenol] 650 mg PO Q6HR PRN tab PRN Reason: Mild Pain Or Fever > 100.5 Continue Aspirin 81 mg PO DAILY Sertraline [Zoloft] 100 mg PO DAILY Multivitamins, Thera [Multivitamin (formulary)] 1 tab PO DAILY metFORMIN HCL [metFORMIN HCL ER Osmotic] 1,000 mg PO BID Aspirin EC [Ecotrin Low Dose] 81 mg PO DAILY Changed Insulin Glargine,Hum.rec.anlog [Lantus Solostar Pen] 40 unit SQ HS #0 Discontinued lisinopriL [Zestril] 2.5 mg PO DAILY Discharge Medication List Aspirin 81 mg PO DAILY 12/29/13 [History] Sertraline [Zoloft] 100 mg PO DAILY 06/28/20 [History] Multivitamins, Thera [Multivitamin (formulary)] 1 tab PO DAILY 08/06/20 [History] Aspirin EC [Ecotrin Low Dose] 81 mg PO DAILY 03/18/21 [History] metFORMIN HCL [metFORMIN HCL ER Osmotic] 1,000 mg PO BID 03/18/21 [History] Acetaminophen Tab [Tylenol] 650 mg PO Q6HR PRN tab 03/21/21 [Rx] Insulin Glargine,Hum.rec.anlog [Lantus Solostar Pen] 40 unit SQ HS #0 03/21/21 [Rx] Tamsulosin [Flomax] 0.4 mg PO PC-BRKFST #30 cap 03/21/21 [Rx] Follow up Appointment(s)/Referral(s): Nonstaff,Physician [Primary Care Provider] - 1-2 days Lyndsey Sweet NPC [Emergency Provider] - 1 Week Lars Briones MD [REFERRING] - 1 Week Ambulatory/Diagnostic Orders: Basic Metabolic Panel [LAB.AMB] Time Frame: 3 Days, Location: None Selected Complete Blood Count w/diff [LAB.AMB] Time Frame: 3 Days, Location: None Selected Patient Instructions/Handouts: Fall Prevention for Older Adults (GEN), Weakness (GEN), Fall Prevention (GEN) Discharge Disposition: HOME SELF-CARE
== END 2021-03-21 13:55 | disposition home or self-care (01) ==
LOC: EC 14:23 → 6NMEDSUR 03-19 01:38
PROVIDERS: ADMIT Internal Medicine; ATTEND Internal Medicine
DX: R53.1 Weakness (principal); M62.50 Muscle wasting and atrophy, not elsewhere classified, unspecified site; R29.6 Repeated falls; E11.649 Type 2 diabetes mellitus with hypoglycemia without coma; E11.65 Type 2 diabetes mellitus with hyperglycemia; K80.20 Calculus of gallbladder without cholecystitis without obstruction; I10 Essential (primary) hypertension; R59.9 Enlarged lymph nodes, unspecified; Z20.822 Contact with and (suspected) exposure to COVID-19; N40.0 Benign prostatic hyperplasia without lower urinary tract symptoms; I45.10 Unspecified right bundle-branch block; F43.10 Post-traumatic stress disorder, unspecified; Z79.82 Long term (current) use of aspirin; Z79.899 Other long term (current) drug therapy; Z79.4 Long term (current) use of insulin; Z88.0 Allergy status to penicillin; Z91.030 Bee allergy status
CPT/HCPCS: 96361 ×3; 96372 ×2; 96374; 99285; 36415; 93005; 93306; 92523; 80053; 80048; 84484; 85025; 81003; 81001; 80320; 87635; 71046; 70450; 71260; G0378 ×3; J1650 ×2; Q9967

== ENCOUNTER 2021-04-29 11:55 | Emergency (ER) | payer OTHER ==
[2021-04-29 12:11] LABS: Glucose,Whole Blood 561 mg/dL (75-99)
[2021-04-29 12:15] VITALS: TEMP 98
[2021-04-29] MEDS ORDERED: SODIUM CHLORIDE 0.9% 1,000 ML IV STA (12:16)
--- NOTE | 2021-04-29 13:28 | CT ---
EXAMINATION TYPE: CT brain avtar wo con DATE OF EXAM: 04/29/2021 COMPARISON: 03/18/2021 HISTORY: 71-year-old male after syncope, Fall, hit left orbital area CT DLP: 1241.4 mGycm Automated exposure control for dose reduction was used. Technique: Examination of the head was done in axial plane without intravenous contrast. Coronal and sagittal reconstructions performed. CT of the cervical spine was obtained in axial plane without intravenous injection of contrast mater ial. Coronal and sagittal reformatted images were obtained from the axial views for evaluation of f ractures, spinal alignment and canal. FINDINGS: Head: There is no evidence of acute intracranial hemorrhage, acute ischemic changes, mass, mass-effect, or extra-axial fluid collection. There is no effacement of cerebral sulci or basal subarachnoid cister ns. Similar mild ventricular prominence secondary to central cerebral atrophy. There is no midline sh ift. Coronel-white matter distinction is preserved. Leftward nasal septal deviation. Paranasal sinuses and mastoid air cells are well pneumatized. There is left periorbital soft tissue contusion. Orbits otherwise appear intact. Cervical spine: No craniocervical junction abnormality, predental space widening, or prevertebral soft tissue swellin g. Mild degenerative disc disease mid to lower cervical spine. Alignment is maintained. No acute fracture seen of the cervical spine. No evident canal compromise by CT. Mild left-sided neuroforaminal narrowing at C5-C6 secondary to facet and uncovertebral joint arthropa thy. Partially calcified mediastinal lymph nodes redemonstrated measuring up to 2.9 cm, unchanged from 03/18/2021. There is mural based lobulated density measuring 1.2 cm along the right lateral mid tracheal wall, ax ial image 96. A smaller density was present in this location on 03/18/2021. Sagittal and coronal reformatted images confirm above findings. COMBINED IMPRESSION: 1. Left periorbital soft tissue contusion. No acute intracranial abnormality seen. Mild to moderate c entral cerebral atrophy. No acute intracranial abnormality seen. 2. No acute fracture or malalignment of the cervical spine. 3. Mural based lobulated density along the right lateral mid trachea measuring 1.2 cm. Recommend 4 we ek follow-up CT chest to exclude a developing mucosal lesion/neoplasm including the possibility of a salivary gland tumor here. An adherent mucus ball is possible. The patient should be instructed to ex pectorate any phlegm immediately prior to the follow-up scan. 4. Known partially calcified mediastinal lymphadenopathy. Correlate for any established diagnosis. Pu lmonary medicine referral if no establish diagnosis.
--- NOTE | 2021-04-29 14:05 | XR ---
EXAMINATION TYPE: XR chest 2V DATE OF EXAM: 04/29/2021 COMPARISON: 03/18/2021 HISTORY: 71-year-old male with syncope TECHNIQUE: AP and lateral views FINDINGS: Heart upper limits of normal in size. Bilateral subcentimeter nodularity is redemonstrated. No amira consolidation or pleural effusion. IMPRESSION: Subcentimeter high density nodularity redemonstrated bilaterally. Correlate for sarcoidosis, prior fu ngal/mycobacterial infections, or prior viral/varicella pneumonias. Recommend outpatient referral to pulmonary medicine for any appropriate workup/surveillance. No acute infiltrate is seen.
[2021-04-29 14:59] LABS: Albumin 4.6 g/dL (3.5-5.0); Calcium 9.9 mg/dL (8.4-10.2); Potassium 5.3 mmol/L (3.5-5.1); Total Bilirubin 0.7 mg/dL (0.2-1.3); Total Protein 7.5 g/dL (6.3-8.2)
[2021-04-29 15:05] LABS: Basophils % (A) 1 %; Eosinophils # (A) 0.1 k/uL (0-0.7); Eosinophils % (A) 2 %; HGB 15.4 gm/dL (13.0-17.5); Hyperchromasia Slight; Lymphocytes # (A) 1.2 k/uL (1.0-4.8); Lymphocytes % (A) 19 %; MCH 30.2 pg (25.0-35.0); MCHC 34.9 g/dL (31.0-37.0); MCV 86.7 fL (80.0-100.0); Mean Platelet Volume 8.9; Monocytes # (A) 0.4 k/uL (0-1.0); Monocytes % (A) 6 %; Neutrophils # (A) 4.6 k/uL (1.3-7.7); Neutrophils % (A) 72 %; Platelet Count 160 k/uL (150-450); RBC 5.08 m/uL (4.30-5.90); WBC 6.4 k/uL (3.8-10.6)
[2021-04-29 15:07] LABS: INR 0.9 (<1.2); Prothrombin Time 10.2 sec (9.0-12.0)
[2021-04-29] MEDS ORDERED: INSULIN ASPART (NovoLOG) 100 UNIT/ML VIAL SQ ONE (16:01)
[2021-04-29 18:04] LABS: Glucose,Whole Blood 275 mg/dL (75-99)
--- NOTE | 2021-04-29 19:31 | ED ---
Fall HPI - General Chief Complaint: Fall Stated Complaint: fall, head injury Time Seen by Provider: 04/29/21 12:06 Source: patient Mode of arrival: ambulatory - History of Present Illness Initial Comments: Patient presents after a fall. He landed on his face. He sustained some injuries there. He denies any chest or belly or back pain. He has no shortness of breath. He has no nausea or vomiting. He has no focal sustained some abrasions. He has no lacerations requiring repair. He has no change in vision or hearing. He has no neck pain or neck stiffness. He has no swelling in the arms or legs. He doesn't have any back pain. - Related Data Home Medications Medication Instructions Recorded Confirmed Sertraline [Zoloft] 150 mg PO DAILY 06/28/20 04/29/21 Multivitamins, Thera [Multivitamin 1 tab PO DAILY 08/06/20 04/29/21 (formulary)] Aspirin EC [Ecotrin Low Dose] 81 mg PO DAILY 03/18/21 04/29/21 Insulin Glargine,Hum.rec.anlog 50 unit SQ HS 04/29/21 04/29/21 [Lantus Solostar Pen] Simvastatin [Zocor] 20 mg PO HS 04/29/21 04/29/21 metFORMIN HCL [Glucophage] 1,000 mg PO BID 04/29/21 04/29/21 Previous Rx's Medication Instructions Recorded Acetaminophen Tab [Tylenol] 650 mg PO Q6HR PRN tab 03/21/21 Allergies Allergy/AdvReac Type Severity Reaction Status Date / Time bee venom protein (honey bee) Allergy Rash/Hives Verified 04/29/21 14:38 Penicillins Allergy Rash/Hives Verified 04/29/21 14:38 Review of Systems ROS Statement: Those systems with pertinent positive or pertinent negative responses have been documented in the HPI. ROS Other: All systems not noted in ROS Statement are negative. Past Medical History Past Medical History: Diabetes Mellitus, Hypertension Additional Past Medical History / Comment(s): exposed to agent orange in [place]. History of Any Multi-Drug Resistant Organisms: None Reported Past Surgical History: Appendectomy Additional Past Surgical History / Comment(s): . Past Anesthesia/Blood Transfusion Reactions: No Reported Reaction Past Psychological History: PTSD Smoking Status: Never smoker Past Alcohol Use History: None Reported Past Drug Use History: None Reported - Past Family History Family Family Medical History: No Reported History General Exam Limitations: no limitations General appearance: alert, in no apparent distress Head exam: Present: normocephalic, normal inspection, other (Bruising on the face) Eye exam: Present: normal appearance, PERRL, EOMI. Absent: scleral icterus, conjunctival injection, periorbital swelling ENT exam: Present: normal exam, mucous membranes moist Neck exam: Present: normal inspection. Absent: tenderness, meningismus, lymphadenopathy Respiratory exam: Present: normal lung sounds bilaterally. Absent: respiratory distress, wheezes, rales, rhonchi, stridor Cardiovascular Exam: Present: regular rate, normal rhythm, normal heart sounds. Absent: systolic murmur, diastolic murmur, rubs, gallop, clicks GI/Abdominal exam: Present: soft, normal bowel sounds. Absent: distended, tenderness, guarding, rebound, rigid Extremities exam: Present: normal inspection, full ROM, normal capillary refill. Absent: tenderness, pedal edema, joint swelling, calf tenderness Back exam: Present: normal inspection Neurological exam: Present: alert, oriented X3, CN II-XII intact Psychiatric exam: Present: normal affect, normal mood Skin exam: Present: normal color, other (Multiple abrasions). Absent: rash Course Vital Signs 04/29/21 04/29/21 12:11 16:56 Temperature 98 F Pulse Rate 78 67 Respiratory 16 20 Rate Blood Pressure 130/78 112/79 O2 Sat by Pulse 100 97 Oximetry Medical Decision Making - Medical Decision Making Patient was observed for many hours. His imaging is negative. His initial sugar was elevated, but he is rehydrated and given subcutaneous insulin. He has no evidence of DKA. After a very lengthy period of observation, there does not appear to be any acute emergency requiring admission to the hospital. He is feeling much better and would like to go home. - Lab Data Result diagrams: 04/29/21 14:30 04/29/21 14:30 Lab Results 04/29/21 04/29/21 04/29/21 Range/Units 12:08 14:30 14:30 WBC 6.4 (3.8-10.6) k/uL RBC 5.08 (4.30-5.90) m/uL Hgb 15.4 (13.0-17.5) gm/dL Hct 44.0 (39.0-53.0) % MCV 86.7 (80.0-100.0) fL MCH 30.2 (25.0-35.0) pg MCHC 34.9 (31.0-37.0) g/dL RDW 14.0 (11.5-15.5) % Plt Count 160 (150-450) k/uL MPV 8.9 Neutrophils % 72 % Lymphocytes % 19 % Monocytes % 6 % Eosinophils % 2 % Basophils % 1 % Neutrophils # 4.6 (1.3-7.7) k/uL Lymphocytes # 1.2 (1.0-4.8) k/uL Monocytes # 0.4 (0-1.0) k/uL Eosinophils # 0.1 (0-0.7) k/uL Basophils # 0.0 (0-0.2) k/uL Hyperchromasia Slight PT 10.2 (9.0-12.0) sec INR 0.9 (<1.2) APTT 21.0 L (22.0-30.0) sec Sodium (137-145) mmol/L Potassium (3.5-5.1) mmol/L Chloride (98-107) mmol/L Carbon Dioxide (22-30) mmol/L Anion Gap mmol/L BUN (9-20) mg/dL Creatinine (0.66-1.25) mg/dL Est GFR (CKD-EPI)AfAm (>60 ml/min/1.73 sqM) Est GFR (CKD-EPI)NonAf (>60 ml/min/1.73 sqM) Glucose (74-99) mg/dL POC Glucose (mg/dL) 561 H (75-99) mg/dL POC Glu [employer]er ID Carlene Haddad Calcium (8.4-10.2) mg/dL Magnesium (1.6-2.3) mg/dL Total Bilirubin (0.2-1.3) mg/dL AST (17-59) U/L ALT (4-49) U/L Alkaline Phosphatase (38-126) U/L Troponin I (0.000-0.034) ng/mL Total Protein (6.3-8.2) g/dL Albumin (3.5-5.0) g/dL 04/29/21 04/29/21 04/29/21 Range/Units 14:30 14:30 16:56 WBC (3.8-10.6) k/uL RBC (4.30-5.90) m/uL Hgb (13.0-17.5) gm/dL Hct (39.0-53.0) % MCV (80.0-100.0) fL MCH (25.0-35.0) pg MCHC (31.0-37.0) g/dL RDW (11.5-15.5) % Plt Count (150-450) k/uL MPV Neutrophils % % Lymphocytes % % Monocytes % % Eosinophils % % Basophils % % Neutrophils # (1.3-7.7) k/uL Lymphocytes # (1.0-4.8) k/uL Monocytes # (0-1.0) k/uL Eosinophils # (0-0.7) k/uL Basophils # (0-0.2) k/uL Hyperchromasia PT (9.0-12.0) sec INR (<1.2) APTT (22.0-30.0) sec Sodium 132 L (137-145) mmol/L Potassium 5.3 H (3.5-5.1) mmol/L Chloride 96 L (98-107) mmol/L Carbon Dioxide 24 (22-30) mmol/L Anion Gap 12 mmol/L BUN 26 H (9-20) mg/dL Creatinine 1.05 (0.66-1.25) mg/dL Est GFR (CKD-EPI)AfAm 82 (>60 ml/min/1.73 sqM) Est GFR (CKD-EPI)NonAf 71 (>60 ml/min/1.73 sqM) Glucose 591 H* (74-99) mg/dL POC Glucose (mg/dL) (75-99) mg/dL POC Glu [employer] Tuner ID Calcium 9.9 (8.4-10.2) mg/dL Magnesium 2.0 (1.6-2.3) mg/dL Total Bilirubin 0.7 (0.2-1.3) mg/dL AST 26 (17-59) U/L ALT 18 (4-49) U/L Alkaline Phosphatase 69 (38-126) U/L Troponin I <0.012 <0.012 (0.000-0.034) ng/mL Total Protein 7.5 (6.3-8.2) g/dL Albumin 4.6 (3.5-5.0) g/dL 04/29/21 Range/Units 18:03 WBC (3.8-10.6) k/uL RBC (4.30-5.90) m/uL Hgb (13.0-17.5) gm/dL Hct (39.0-53.0) % MCV (80.0-100.0) fL MCH (25.0-35.0) pg MCHC (31.0-37.0) g/dL RDW (11.5-15.5) % Plt Count (150-450) k/uL MPV Neutrophils % % Lymphocytes % % Monocytes % % Eosinophils % % Basophils % % Neutrophils # (1.3-7.7) k/uL Lymphocytes # (1.0-4.8) k/uL Monocytes # (0-1.0) k/uL Eosinophils # (0-0.7) k/uL Basophils # (0-0.2) k/uL Hyperchromasia PT (9.0-12.0) sec INR (<1.2) APTT (22.0-30.0) sec Sodium (137-145) mmol/L Potassium (3.5-5.1) mmol/L Chloride (98-107) mmol/L Carbon Dioxide (22-30) mmol/L Anion Gap mmol/L BUN (9-20) mg/dL Creatinine (0.66-1.25) mg/dL Est GFR (CKD-EPI)AfAm (>60 ml/min/1.73 sqM) Est GFR (CKD-EPI)NonAf (>60 ml/min/1.73 sqM) Glucose (74-99) mg/dL POC Glucose (mg/dL) 275 H (75-99) mg/dL POC Glu [employer]er ID Tano Zamorale Calcium (8.4-10.2) mg/dL Magnesium (1.6-2.3) mg/dL Total Bilirubin (0.2-1.3) mg/dL AST (17-59) U/L ALT (4-49) U/L Alkaline Phosphatase (38-126) U/L Troponin I (0.000-0.034) ng/mL Total Protein (6.3-8.2) g/dL Albumin (3.5-5.0) g/dL 04/29/21 19:30 Twelve-lead EKG shows ventricular rate 74 bpm, normal SD interval, there is a right bundle branch block, there is no ST elevation or depression, interpreted by me as normal sinus rhythm. Disposition Clinical Impression: Fall, Head injury Disposition: HOME SELF-CARE Condition: Good Instructions (If sedation given, give patient instructions): Fall Prevention for Older Adults (ED), Head Injury (ED) Is patient prescribed a controlled substance at d/c from ED?: No Referrals: Nonstaff,Physician [Primary Care Provider] - 1-2 days
[2021-04-29 19:37] VITALS: BP 101/70; PULSE 73; RESP 18
== END 2021-04-29 19:36 | disposition home or self-care (01) ==
LOC: EC 11:55
DX: S00.83XA Contusion of other part of head, initial encounter (principal); E11.9 Type 2 diabetes mellitus without complications; I10 Essential (primary) hypertension; Z79.4 Long term (current) use of insulin; Z79.82 Long term (current) use of aspirin; Z79.899 Other long term (current) drug therapy; Z88.0 Allergy status to penicillin; W19.XXXA Unspecified fall, initial encounter
CPT/HCPCS: 36415; 70450; 71046; 72125; 80053; 83735; 84484; 85025; 85610; 85730; 93005; 96360; 96361; 99285

== ENCOUNTER 2021-07-03 19:11 | Emergency (ER) | payer OTHER ==
[2021-07-03 20:01] LABS: Glucose,Whole Blood 337 mg/dL (75-99)
[2021-07-03] MEDS ORDERED: ACETAMINOPHEN TAB 500 MG TAB PO STA (20:10)
[2021-07-03] MEDS ORDERED: SODIUM CHLORIDE 0.9% 1,000 ML IV STA (20:11)
[2021-07-03 20:31] LABS: Basophils % (A) 0 %; Eosinophils % (A) 0 %; HGB 14.5 gm/dL (13.0-17.5); Lymphocytes # (A) 0.6 k/uL (1.0-4.8); Lymphocytes % (A) 6 %; MCH 30.6 pg (25.0-35.0); MCHC 33.8 g/dL (31.0-37.0); MCV 90.6 fL (80.0-100.0); Mean Platelet Volume 7.2; Monocytes # (A) 0.4 k/uL (0-1.0); Monocytes % (A) 4 %; Neutrophils # (A) 7.8 k/uL (1.3-7.7); Neutrophils % (A) 88 %; Platelet Count 149 k/uL (150-450); RBC 4.74 m/uL (4.30-5.90); RDW 13.7 % (11.5-15.5); WBC 8.8 k/uL (3.8-10.6)
--- NOTE | 2021-07-03 20:33 | ED ---
General Adult HPI - General Chief complaint: Fall Stated complaint: Fall from standing, Upper respiratory issues Time Seen by Provider: 07/03/21 19:55 Source: patient, RN notes reviewed Mode of arrival: ambulatory Limitations: no limitations - History of Present Illness Initial comments: 71-year-old male with a past medical history of IDDM, hypertension presents to the emergency room for fall. Patient states he slipped on ice walking down the stairs today. He missed a step and fell and hit his left hip on the stair. He did not hit his head. He does not take blood thinners. He also is noted to have a fever. He denies any cough congestion but did have a sore throat this morning. Denies abdominal pain chest pain or shortness of breath.Patient has no other complaints at this time including shortness of breath, chest pain, abdominal pain, nausea or vomiting, headache, or visual changes. - Related Data Home Medications Medication Instructions Recorded Confirmed Sertraline [Zoloft] 150 mg PO DAILY 06/28/20 04/29/21 Multivitamins, Thera [Multivitamin 1 tab PO DAILY 08/06/20 04/29/21 (formulary)] Aspirin EC [Ecotrin Low Dose] 81 mg PO DAILY 03/18/21 04/29/21 Insulin Glargine,Hum.rec.anlog 50 unit SQ HS 04/29/21 04/29/21 [Lantus Solostar Pen] Simvastatin [Zocor] 20 mg PO HS 04/29/21 04/29/21 metFORMIN HCL [Glucophage] 1,000 mg PO BID 04/29/21 04/29/21 Previous Rx's Medication Instructions Recorded Acetaminophen Tab [Tylenol] 650 mg PO Q6HR PRN tab 03/21/21 Allergies Allergy/AdvReac Type Severity Reaction Status Date / Time bee venom protein (honey bee) Allergy Rash/Hives Verified 07/03/21 19:49 Penicillins Allergy Rash/Hives Verified 07/03/21 19:49 Review of Systems ROS Statement: Those systems with pertinent positive or pertinent negative responses have been documented in the HPI. ROS Other: All systems not noted in ROS Statement are negative. Past Medical History Past Medical History: Diabetes Mellitus, Hypertension Additional Past Medical History / Comment(s): exposed to agent orange in [place]. History of Any Multi-Drug Resistant Organisms: None Reported Past Surgical History: Appendectomy Additional Past Surgical History / Comment(s): . Past Anesthesia/Blood Transfusion Reactions: No Reported Reaction Past Psychological History: PTSD Smoking Status: Never smoker Past Alcohol Use History: None Reported Past Drug Use History: None Reported - Past Family History Family Family Medical History: No Reported History General Exam Limitations: no limitations General appearance: alert, in no apparent distress Head exam: Present: atraumatic Eye exam: Present: normal appearance, PERRL, EOMI. Absent: scleral icterus, conjunctival injection ENT exam: Present: normal exam, mucous membranes moist Neck exam: Present: normal inspection, full ROM. Absent: tenderness Respiratory exam: Present: normal lung sounds bilaterally. Absent: respiratory distress, wheezes Cardiovascular Exam: Present: regular rate, normal rhythm, normal heart sounds GI/Abdominal exam: Present: soft, normal bowel sounds. Absent: distended, tenderness Extremities exam: Present: full ROM (full Range of motion of the left lower extremity including the hip and knee), normal capillary refill (Capillary refill less than 2 seconds left lower extremity), other (Patient has posterior left- sided upper pelvic tenderness. No lumbar spine tenderness) Back exam: Absent: vertebral tenderness Neurological exam: Present: alert Course Vital Signs 07/03/21 19:42 Temperature 103.0 F H Pulse Rate 103 H Respiratory 20 Rate Blood Pressure 103/66 O2 Sat by Pulse 97 Oximetry Medical Decision Making - Medical Decision Making Vitals are stable. CBC unremarkable. CMP does show evidence of dehydration with a BUN of 39, given a liter of fluids. Patient did have a glucose of 349 which improved to 290 with fluids. COVID-19 is detected. Chest x-ray negative for pneumonia. Pelvis and hip negative. patient did positive for COVID 19. He does qualify for antibody infusion and he did receive this. Patient is stable for outpatient follow-up. His oxygen is 97%. Patient's daughter will be able to look after him at home. He will return here for any worsening symptoms. - Lab Data Result diagrams: 07/03/21 20:18 07/03/21 20:18 Lab Results 07/03/21 07/03/21 07/03/21 Range/Units 19:56 20:18 20:18 WBC 8.8 (3.8-10.6) k/uL RBC 4.74 (4.30-5.90) m/uL Hgb 14.5 (13.0-17.5) gm/dL Hct 43.0 (39.0-53.0) % MCV 90.6 (80.0-100.0) fL MCH 30.6 (25.0-35.0) pg MCHC 33.8 (31.0-37.0) g/dL RDW 13.7 (11.5-15.5) % Plt Count 149 L (150-450) k/uL MPV 7.2 Neutrophils % 88 % Lymphocytes % 6 % Monocytes % 4 % Eosinophils % 0 % Basophils % 0 % Neutrophils # 7.8 H (1.3-7.7) k/uL Lymphocytes # 0.6 L (1.0-4.8) k/uL Monocytes # 0.4 (0-1.0) k/uL Eosinophils # 0.0 (0-0.7) k/uL Basophils # 0.0 (0-0.2) k/uL PT 10.0 (9.0-12.0) sec INR 0.9 (<1.2) APTT 26.7 (22.0-30.0) sec Sodium (137-145) mmol/L Potassium (3.5-5.1) mmol/L Chloride (98-107) mmol/L Carbon Dioxide (22-30) mmol/L Anion Gap mmol/L BUN (9-20) mg/dL Creatinine (0.66-1.25) mg/dL Est GFR (CKD-EPI)AfAm (>60 ml/min/1.73 sqM) Est GFR (CKD-EPI)NonAf (>60 ml/min/1.73 sqM) Glucose (74-99) mg/dL POC Glucose (mg/dL) 337 H (75-99) mg/dL POC Glu Credit Risk Management Director ID John Stone Plasma Lactic Acid Maciel (0.7-2.0) mmol/L Calcium (8.4-10.2) mg/dL Total Bilirubin (0.2-1.3) mg/dL AST (17-59) U/L ALT (4-49) U/L Alkaline Phosphatase (38-126) U/L Total Protein (6.3-8.2) g/dL Albumin (3.5-5.0) g/dL Coronavirus (PCR) (Not Detectd) Heterophile Antibody (Negative) Group A Strep Rapid (Negative) 07/03/21 07/03/21 07/03/21 Range/Units 20:18 20:18 20:18 WBC (3.8-10.6) k/uL RBC (4.30-5.90) m/uL Hgb (13.0-17.5) gm/dL Hct (39.0-53.0) % MCV (80.0-100.0) fL MCH (25.0-35.0) pg MCHC (31.0-37.0) g/dL RDW (11.5-15.5) % Plt Count (150-450) k/uL MPV Neutrophils % % Lymphocytes % % Monocytes % % Eosinophils % % Basophils % % Neutrophils # (1.3-7.7) k/uL Lymphocytes # (1.0-4.8) k/uL Monocytes # (0-1.0) k/uL Eosinophils # (0-0.7) k/uL Basophils # (0-0.2) k/uL PT (9.0-12.0) sec INR (<1.2) APTT (22.0-30.0) sec Sodium 135 L (137-145) mmol/L Potassium 4.4 (3.5-5.1) mmol/L Chloride 101 (98-107) mmol/L Carbon Dioxide 21 L (22-30) mmol/L Anion Gap 13 mmol/L BUN 39 H (9-20) mg/dL Creatinine 1.23 (0.66-1.25) mg/dL Est GFR (CKD-EPI)AfAm 67 (>60 ml/min/1.73 sqM) Est GFR (CKD-EPI)NonAf 58 (>60 ml/min/1.73 sqM) Glucose 349 H (74-99) mg/dL POC Glucose (mg/dL) (75-99) mg/dL POC Glu Credit Risk Management Director ID Plasma Lactic Acid Maciel 1.0 (0.7-2.0) mmol/L Calcium 9.1 (8.4-10.2) mg/dL Total Bilirubin 0.8 (0.2-1.3) mg/dL AST 24 (17-59) U/L ALT 15 (4-49) U/L Alkaline Phosphatase 70 (38-126) U/L Total Protein 7.3 (6.3-8.2) g/dL Albumin 4.3 (3.5-5.0) g/dL Coronavirus (PCR) Detected A (Not Detectd) Heterophile Antibody (Negative) Group A Strep Rapid (Negative) 07/03/21 07/03/21 07/03/21 Range/Units 20:18 20:18 21:36 WBC (3.8-10.6) k/uL RBC (4.30-5.90) m/uL Hgb (13.0-17.5) gm/dL Hct (39.0-53.0) % MCV (80.0-100.0) fL MCH (25.0-35.0) pg MCHC (31.0-37.0) g/dL RDW (11.5-15.5) % Plt Count (150-450) k/uL MPV Neutrophils % % Lymphocytes % % Monocytes % % Eosinophils % % Basophils % % Neutrophils # (1.3-7.7) k/uL Lymphocytes # (1.0-4.8) k/uL Monocytes # (0-1.0) k/uL Eosinophils # (0-0.7) k/uL Basophils # (0-0.2) k/uL PT (9.0-12.0) sec INR (<1.2) APTT (22.0-30.0) sec Sodium (137-145) mmol/L Potassium (3.5-5.1) mmol/L Chloride (98-107) mmol/L Carbon Dioxide (22-30) mmol/L Anion Gap mmol/L BUN (9-20) mg/dL Creatinine (0.66-1.25) mg/dL Est GFR (CKD-EPI)AfAm (>60 ml/min/1.73 sqM) Est GFR (CKD-EPI)NonAf (>60 ml/min/1.73 sqM) Glucose (74-99) mg/dL POC Glucose (mg/dL) 290 H (75-99) mg/dL POC Glu Credit Risk Management Director ID Barak, Holly Plasma Lactic Acid Maciel (0.7-2.0) mmol/L Calcium (8.4-10.2) mg/dL Total Bilirubin (0.2-1.3) mg/dL AST (17-59) U/L ALT (4-49) U/L Alkaline Phosphatase (38-126) U/L Total Protein (6.3-8.2) g/dL Albumin (3.5-5.0) g/dL Coronavirus (PCR) (Not Detectd) Heterophile Antibody Negative (Negative) Group A Strep Rapid Negative (Negative) Disposition Clinical Impression: Fall, COVID-19 Disposition: HOME SELF-CARE Condition: Good Instructions (If sedation given, give patient instructions): Coronavirus Disease 2019 (COVID-19) Additional Instructions: Please give Tylenol every 6 hours. Drink any of fluids. Follow-up with your doctor. Return to the emergency room for any worsening symptoms such as shortness of breath. Is patient prescribed a controlled substance at d/c from ED?: No Referrals: Nonstaff,Physician [Primary Care Provider] - 1-2 days Time of Disposition: 21:45
[2021-07-03 20:44] LABS: Albumin 4.3 g/dL (3.5-5.0); Calcium 9.1 mg/dL (8.4-10.2); Potassium 4.4 mmol/L (3.5-5.1); Total Bilirubin 0.8 mg/dL (0.2-1.3); Total Protein 7.3 g/dL (6.3-8.2)
--- NOTE | 2021-07-03 20:51 | XR ---
EXAMINATION TYPE: XR chest 2V DATE OF EXAM: 07/03/2021 COMPARISON: 04/29/2021 HISTORY: Syncope TECHNIQUE: 2 views FINDINGS: Heart is normal. Costophrenic angles are clear. There is mild linear density right midlung field. Costophrenic angles are clear. Bony thorax is intac t. IMPRESSION: Subsegmental atelectasis in the right middle lobe. No pulmonary consolidation or heart fa ilure. No change.
--- NOTE | 2021-07-03 20:55 | XR ---
EXAMINATION TYPE: XR Hip LT and AP Pelvis DATE OF EXAM: 07/03/2021 COMPARISON: NONE HISTORY: Left hip pain TECHNIQUE: 4 views FINDINGS: Pelvic ring is intact. Proximal left femur and hip joint are intact. There is no hip dyspla luis. Hip joint spaces are fairly normal. Sacroiliac joints are normal. IMPRESSION: Negative pelvis and left hip exam. No fracture.
[2021-07-03] MEDS ORDERED: SODIUM CHLORIDE 0.9% 50 ML IVPB ONE (21:30)
[2021-07-03 21:35] LABS: INR 0.9 (<1.2); Partial Thromboplastin Time 26.7 sec (22.0-30.0)
[2021-07-03 21:37] LABS: Glucose,Whole Blood 290 mg/dL (75-99)
[2021-07-03] MEDS ORDERED: BAMLANIVIMAB (EUA) 700 MG, ETESEVIMAB (EUA) 1,400 MG in SODIUM CHLORIDE 0.9% 100 ML IVPB ONE (21:45)
[2021-07-03 22:00] VITALS: RESP 18; TEMP 97.7
[2021-07-04 00:47] VITALS: BP 108/68; PULSE 81
== END 2021-07-04 | disposition home or self-care (01) ==
LOC: EC 19:11
DX: U07.1 COVID-19 (principal); E11.9 Type 2 diabetes mellitus without complications; I10 Essential (primary) hypertension; F43.10 Post-traumatic stress disorder, unspecified; Z79.84 Long term (current) use of oral hypoglycemic drugs; Z79.4 Long term (current) use of insulin; W00.9XXA Unspecified fall due to ice and snow, initial encounter
CPT/HCPCS: 99283; 96360; 96361; 36415; 80053; 83605; 85025; 85610; 85730; 86308; 87081; 87430; 87635; 73502; 71046; J3490

== ENCOUNTER 2022-09-09 19:26 | Emergency (ER) | payer OTHER ==
[2022-09-09 19:34] VITALS: TEMP 96.9
--- NOTE | 2022-09-09 20:13 | ED ---
General Adult HPI - General Chief complaint: Fall Stated complaint: Fall Time Seen by Provider: 09/09/22 19:30 Source: patient, EMS Mode of arrival: EMS Limitations: physical limitation - History of Present Illness Initial comments: This is a 72-year-old male with a past medical history including diabetes presents emergency department via EMS after a fall. The patient stated that he was walking home when he tripped and fell, running backwards and hitting the left side of his head. The patient denies loss of consciousness. The patient also stated that he only had pain in the left side of his head but no other acute pain or distress noted. The patient was in laboratory after this fall. The patient denied any other acute pain or complaints and was resting in bed comfortably in c-collar. - Related Data Home Medications Medication Instructions Recorded Confirmed Sertraline [Zoloft] 150 mg PO DAILY 06/28/20 04/29/21 Multivitamins, Thera [Multivitamin 1 tab PO DAILY 08/06/20 04/29/21 (formulary)] Aspirin EC [Ecotrin Low Dose] 81 mg PO DAILY 03/18/21 04/29/21 Insulin Glargine,Hum.rec.anlog 50 unit SQ HS 04/29/21 04/29/21 [Lantus Solostar Pen] Simvastatin [Zocor] 20 mg PO HS 04/29/21 04/29/21 metFORMIN HCL [Glucophage] 1,000 mg PO BID 04/29/21 04/29/21 Previous Rx's Medication Instructions Recorded Acetaminophen Tab [Tylenol] 650 mg PO Q6HR PRN tab 03/21/21 Benzonatate [Tessalon Perles] 200 mg PO Q8H PRN #15 capsule 07/03/21 Allergies Allergy/AdvReac Type Severity Reaction Status Date / Time bee venom protein (honey bee) Allergy Rash/Hives Verified 07/03/21 19:49 Penicillins Allergy Rash/Hives Verified 07/03/21 19:49 Review of Systems ROS Statement: Those systems with pertinent positive or pertinent negative responses have been documented in the HPI. ROS Other: All systems not noted in ROS Statement are negative. Past Medical History Past Medical History: Diabetes Mellitus, Hypertension Additional Past Medical History / Comment(s): exposed to agent orange in [place]. History of Any Multi-Drug Resistant Organisms: None Reported Past Surgical History: Appendectomy Additional Past Surgical History / Comment(s): . Past Anesthesia/Blood Transfusion Reactions: No Reported Reaction Past Psychological History: PTSD Smoking Status: Never smoker Past Alcohol Use History: None Reported Past Drug Use History: None Reported - Past Family History Family Family Medical History: No Reported History General Exam Limitations: no limitations General appearance: alert, in no apparent distress Head exam: Present: normocephalic, other (Mild hematoma noted over the left temporal area just above the ear) Eye exam: Present: normal appearance, PERRL Pupils: Present: normal accommodation ENT exam: Present: normal exam, normal oropharynx, mucous membranes moist Neck exam: Present: normal inspection, other (In C collar) Respiratory exam: Present: normal lung sounds bilaterally Cardiovascular Exam: Present: regular rate, normal rhythm, normal heart sounds GI/Abdominal exam: Present: soft, normal bowel sounds Extremities exam: Present: normal inspection, full ROM Back exam: Present: normal inspection, full ROM Neurological exam: Present: alert, oriented X3, CN II-XII intact Psychiatric exam: Present: normal affect, normal mood Skin exam: Present: warm, dry Course Vital Signs 09/09/22 09/09/22 09/09/22 19:28 19:35 20:00 Temperature 96.9 F L Pulse Rate 86 86 86 Respiratory 17 16 15 Rate Blood Pressure 112/74 112/74 117/76 O2 Sat by Pulse 93 L 91 L 92 L Oximetry 09/09/22 20:30 Temperature Pulse Rate 89 Respiratory 17 Rate Blood Pressure 109/78 O2 Sat by Pulse 93 L Oximetry Medical Decision Making - Medical Decision Making Was pt. sent in by a medical professional or institution (, PA, CONTENT PRODUCTION SPECIALIST, urgent care, hospital, or halfway...) When possible be specific @ -No Did you speak to anyone other than the patient for history (EMS, parent, family, police, friend...)? What history was obtained from this source @ -No Did you review nursing and triage notes (agree or disagree)? Why? @ -I reviewed and agree with nursing and triage notes Were old charts reviewed (outside hosp., previous admission, EMS record, old EKG, old radiological studies, urgent care reports/EKG's, halfway records)? Report findings @ -No old charts were reviewed Differential Diagnosis (chest pain, altered mental status, abdominal pain women, abdominal pain men, vaginal bleeding, weakness, fever, dyspnea, syncope, headache, dizziness, GI bleed, back pain, seizure, CVA, palpatations, mental health)? @ -Closed head injury, intracranial hemorrhage, scalp hematoma EKG interpreted by me (3pts min.). @ -None X-rays interpreted by me (1pt min.). @ -None done CT interpreted by me (1pt min.). @ -CT head and CT C-spine was obtained and was interpreted by myself showing no acute process. U/S interpreted by me (1pt. min.). @ -None done What testing was considered but not performed or refused? (CT, X-rays, U/S, labs)? Why? @ -None What meds were considered but not given or refused? Why? @ -None Did you discuss the management of the patient with other professionals (professionals i.e. , PA, CONTENT PRODUCTION SPECIALIST, lab, RT, psych nurse, social work manager, tool checker, teacher, navy airspace officer, machine adjuster leader case trim)? Give summary @ -No Was smoking cessation discussed for >3mins.? @ -No Was critical care preformed (if so, how long)? @ -No Were there social determinants of health that impacted care today? How? (Homelessness, low income, unemployed, alcoholism, drug addiction, transportation, low edu. Level, literacy, decrease access to med. care, prison, rehab)? @ -No Was there de-escalation of care discussed even if they declined (Discuss DNR or withdrawal of care, Hospice)? DNR status @ -No What co-morbidities impacted this encounter? (DM, HTN, Smoking, COPD, CAD, Cancer, CVA, ARF, Chemo, Hep., AIDS, mental health diagnosis, sleep apnea, morbid obesity)? @ -Diabetes Was patient admitted / discharged? Hospital course, mention meds given and route, prescriptions, significant lab abnormalities, going to OR and other pertinent info. @ -The patient was seen and evaluated in the emergency department. Physical exam, the patient was resting in bed without any acute distress. Vital signs admission were stable. Due to the patient's mechanism of injury, CT head and CT C-spine were obtained and were within normal limits. The patient remained stable and had no further complaints. The patient was stable for discharge home. The patient was advised to follow-up with his private care physician for further workup and evaluation and to report back to the emergency department if his pain became acutely worse. The patient was agreeable to this and all his questions were answered. The patient was discharged home in stable condition. Undiagnosed new problem with uncertain prognosis? @ -No Drug Therapy requiring intensive monitoring for toxicity (Heparin, Nitro, Insulin, Cardizem)? @ -No Were any procedures done? @ -No Diagnosis/symptom? @ -Mechanical fall, closed head injury Acute, or Chronic, or Acute on Chronic? @ -Acute Uncomplicated (without systemic symptoms) or Complicated (systemic symptoms)? @ -Uncomplicated Side effects of treatment? @ -No Exacerbation, Progression, or Severe Exacerbation? @ -No Poses a threat to life or bodily function? How? (Chest pain, [place], [place], pneumonia, PE, COPD, DKA, ARF, appy, cholecystitis, CVA, Diverticulitis, Homicidal, Suicidal, threat to staff... and all critical care pts) @ -No Disposition Clinical Impression: Fall, Closed head injury Disposition: HOME SELF-CARE Condition: Stable Instructions (If sedation given, give patient instructions): Fall Prevention for Older Adults (ED), Head Injury (DC) Is patient prescribed a controlled substance at d/c from ED?: No Referrals: Nonstaff,Physician [Primary Care Provider] - 1-2 days Time of Disposition: 20:30
--- NOTE | 2022-09-09 21:07 | CT ---
EXAMINATION TYPE: CT brain avtar calderon DATE OF EXAM: 09/09/2022 COMPARISON: 04/29/2021 HISTORY: pain after fall today. left side of head hurts CT DLP: 1320.7 mGycm Automated exposure control for dose reduction was used. Images obtained of the brain and cervical spine with no contrast. There is some cerebral cortical atrophy. There is no mass effect or midline shift. No sign of intracr anial hemorrhage. Calvarium is intact. The skull base is intact. No evidence of cerebral edema. There is left posterior temporal scalp soft tissue swelling. Temporal bones are intact. No fracture. The s lexie turcica appears normal. The cervical vertebra have normal alignment. Disc spaces are fairly normal. Posterior elements are in tact. No compression fracture. Facet joints are intact. No focal bone destruction. IMPRESSION: Negative CT scan of the cervical spine. No fracture. No change. Cerebral atrophy. No acute intracranial abnormality. No change. Small left posterior temporal scalp hematoma.
[2022-09-09 21:43] VITALS: BP 108/72; PULSE 84; RESP 15
== END 2022-09-09 22:19 | disposition home or self-care (01) ==
LOC: EC 19:26
DX: S00.03XA Contusion of scalp, initial encounter (principal); E11.9 Type 2 diabetes mellitus without complications; I10 Essential (primary) hypertension; Z79.84 Long term (current) use of oral hypoglycemic drugs; Z79.82 Long term (current) use of aspirin; Z79.899 Other long term (current) drug therapy; Z88.0 Allergy status to penicillin; Z91.030 Bee allergy status; W01.0XXA Fall on same level from slipping, tripping and stumbling without subsequent striking against object, initial encounter; Y93.01 Activity, walking, marching and hiking
CPT/HCPCS: 72125; 70450; 99284; L0120